=== PATIENT | male | born 1985 | race Caucasian/White ===

== ENCOUNTER 2019-10-21 20:59 | Emergency (ER) | payer SELFPAY ==
[~2019-10-21] VITALS: Ht 182.9 cm; Wt 75.0 kg
[~2019-10-21 20:59] MED LIST: HYDR1TAB PO; PRM25T PO
[2019-10-21 22:06] LABS: BASOPHILS % (AUTO) 0 % (0-10); EOSINOPHILS % (AUTO) 0 % (0-10); HEMATOCRIT 44 % (40-54); HEMOGLOBIN 15.6 G/DL (13.3-17.7); LYMPHOCYTES # (AUTO) 1.7 X 10^3 (1.0-4.0); LYMPHOCYTES % (AUTO) 13 % (12-44); MEAN CORPUSCULAR HEMOGLOBIN 32 PG (25-34); MEAN CORPUSCULAR HGB CONC 36 G/DL (32-36); MEAN CORPUSCULAR VOLUME 90 FL (80-99); MEAN PLATELET VOLUME 10.6 FL (7.4-10.4); MONOCYTES # (AUTO) 1.1 X 10^3 (0.0-1.0); MONOCYTES % (AUTO) 8 % (0-12); NEUTROPHILS # (AUTO) 10.3 X 10^3 (1.8-7.8); NEUTROPHILS % (AUTO) 79 % (42-75); PLATELET COUNT 232 10^3/uL (130-400)
[2019-10-21 22:07] LABS: BILIRUBIN,URINE 1+ (NEGATIVE); CLARITY,URINE CLEAR; COLOR,URINE ORANGE; GLUCOSE, URINE (UA) NEGATIVE (NEGATIVE); KETONES,URINE 3+ (NEGATIVE); LEUKOCYTE ESTERASE ,URINE NEGATIVE (NEGATIVE); NITRITE,URINE NEGATIVE (NEGATIVE); PH,URINE 6.5 (5-9); PROTEIN,URINE NEGATIVE (NEGATIVE)
[2019-10-21 22:19] LABS: BACTERIA,URINE TRACE /HPF
[2019-10-21] MEDS ORDERED: LACTATED RINGERS 1,000 ML IV ONE (22:20)
[2019-10-21] MEDS ORDERED: KETOROLAC 30 MG/ML VIAL IVP STA (22:22)
[2019-10-21 22:28] LABS: ALANINE AMINOTRANSFERASE 14 U/L (0-55); ALBUMIN 4.6 GM/DL (3.2-4.5); ALKALINE PHOSPHATASE 50 U/L (40-136); BILIRUBIN,TOTAL 1.2 MG/DL (0.1-1.0); BUN/CREATININE RATIO 7; CALCIUM 9.3 MG/DL (8.5-10.1); CARBON DIOXIDE 24 MMOL/L (21-32); CHLORIDE 103 MMOL/L (98-107); CREATININE SERUM 0.81 MG/DL (0.60-1.30); GFR ESTIMATED > 60; GLUCOSE 95 MG/DL (70-105); POTASSIUM 3.8 MMOL/L (3.6-5.0); SODIUM 139 MMOL/L (135-145); TOTAL PROTEIN 7.4 GM/DL (6.4-8.2)
--- NOTE | 2019-10-21 22:29 | ED Abdominal Pain ---
General Chief Complaint: Abdominal/GI Problems Stated Complaint: ABD PAIN,FEVER Nursing Triage Note: Pt amb to triage with c/o LLQ abd discomfort, diarrhea, and fever. Pt reports onset of symptoms to be 10/19/19. Pt describes discomfort as "sharp." Denies nausea or vomiting. Sepsis Screen: Possible Severe Sepsis Risk Source of Information: Patient Exam Limitations: No Limitations (JESUS LEE MED STUDENT) History of Present Illness Date Seen by Provider: Oct 21, 2019 Time Seen by Provider: 21:58 Initial Comments Pt complains of LLQ abdominal pain and ongoing diarrhea beginning Sunday. Describes pain as constantly crampy /10 with occasional sharp 8/10 exacerbations. Pain is worsened after bowel movements and resolves completely with 600mg of ibuprofen he has been taking 3x a day since Sunday. Associates his pain with loss of appetite and nausea, denies vomiting. Past medical history is notable for diverticulosis diagnosed on lower GI study in 2010. Timing/Duration: 2-3 Days Severity/Quality: Moderate, Aching, Cramping, Sharp, Stabbing Location: LLQ Radiation: No Radiation Activities at Onset: None Modifying Factors: Improves With Analgesics; Worsens With Defecating; Improves With Lying down; Worsens With Movement, Worsens With Palpation Associated Symptoms: No Back Pain; Diaphoresis, Fever/Chills, Fatigue; No Headache, No Heartburn; Nausea/Vomiting; No Rash (JESUS LEE MED STUDENT) Severity/Quality: Moderate, Cramping Location: LLQ Radiation: No Radiation Modifying Factors: Improves With Analgesics, Improves With Resting Associated Symptoms: Fever/Chills, Nausea/Vomiting; No Weakness (AMAYA JARRETT MD) Allergies and Home Medications Allergies Coded Allergies: No Known Drug Allergies (Unverified , 04/17/13) Home Medications Promethazine Hcl 25 Mg Tab, 25 MG PO Q6H Prescribed by: AMAYA JARRETT on 11/01/14 1328 Patient Home Medication List Home Medication List Reviewed: Yes (JESUS LEE MED STUDENT) Home Medication List Reviewed: Yes (AMAYA JARRETT MD) Review of Systems Review of Systems Constitutional: chills, diaphoresis, fever, malaise EENTM: No Eye Pain, No Ear Pain, No Mouth Pain, No Nose Pain, No Throat Pain, No Throat Swelling Respiratory: Denies Cough, Denies Shortness of Air Cardiovascular: Denies Chest Pain, Denies Edema Gastrointestinal: See HPI; Denies Abdomen Distended; Abdominal Pain, Constipated, Diarrhea, Nausea, Poor Appetite; Denies Rectal Bleeding, Denies Vomiting Genitourinary: Denies Incontinence, Denies Pain Musculoskeletal: No back pain, No joint pain Skin: No lesions, No lumps, No rash Psychiatric/Neurological: Denies Anxiety, Denies Depressed Endocrine: Denies Intolerance to Cold, Denies Intolerance to Heat Hematologic/Lymphatic: Denies Blood Clots, Denies Easy Bleeding (JESUS LEE MED STUDENT) Constitutional: see HPI Cardiovascular: Denies Chest Pain, Denies Edema Gastrointestinal: Diarrhea, Nausea (AMAYA JARRETT MD) All Other Systems Reviewed Negative Unless Noted: Yes (AMAYA JARRETT MD) Past Pcrrdvu-Xpmxqe-Onmuyr Hx Past Med/Social Hx: Reviewed Nursing Past Med/Soc Hx (AMAYA JARRETT MD) Patient Social History Alcohol Use: Denies Use Recreational Drug Use: Yes Drug of Choice: thc Smoking Status: Current Everyday Smoker Type Used: Cigarettes 2nd Hand Smoke Exposure: Yes Recent Foreign Travel: No Contact w/Someone Who Travel: No Recent Infectious Disease Expo: No (JESUS LEE MED STUDENT) Immunizations Up To Date Tetanus Booster (TDap): More than 5yrs (JESUS LEE MED STUDENT) Past Medical History Surgeries: No Respiratory: No Cardiac: No Neurological: No Gastrointestinal: No Musculoskeletal: No Endocrine: No Cancer: No Psychosocial: No Integumentary: No (JESUS LEE MED STUDENT) Family Medical History Reviewed Nursing Family Hx (AMAYA JARRETT MD) Cancer (colon, grandfather ) (JESUS LEE MED STUDENT) Physical Exam Vital Signs Vital Signs - First Documented 10/21/19 21:22 Temp 38.2 Pulse 96 Resp 18 B/P (MAP) 118/80 (93) Pulse Ox 96 O2 Delivery Room Air (AMAYA JARRETT MD) Vital Signs Capillary Refill : Less Than 3 Seconds (JESUS LEE MED STUDENT) Height/Weight/BMI Height: 6'" Weight: 185lbs. oz. 83.213078vz; 22.00 BMI Method:Stated General Appearance: WD/WN, no apparent distress HEENT: PERRL/EOMI, normal ENT inspection, TMs normal, pharynx normal Neck: non-tender, supple Respiratory: chest non-tender, lungs clear, normal breath sounds, no respiratory distress, no accessory muscle use Cardiovascular: regular rate, rhythm, no edema, no gallop, no murmur Gastrointestinal: normal bowel sounds, soft; No distended, No guarding, No rebound; tenderness (LLQ TTP); No mass Extremities: no calf tenderness, normal capillary refill Back: no CVA tenderness, no vertebral tenderness Neurologic/Psychiatric: alert, normal mood/affect, oriented x 3 Skin: normal color, warm/dry Lymphatic: no adenopathy (supra/infraclavicular, anterior and posterior cervical ) (JESUS LEE,MED STUDENT) General Appearance: WD/WN, no apparent distress Respiratory: lungs clear, normal breath sounds Cardiovascular: regular rate, rhythm, no murmur Gastrointestinal: soft, tenderness (LLQ TTP) Extremities: non-tender Back: normal inspection, no CVA tenderness, no vertebral tenderness Neurologic/Psychiatric: alert, oriented x 3 Skin: normal color, warm/dry (AMAYA JARRETT MD) Progress/Results/Core Measures Results/Orders Lab Results Laboratory Tests Test 10/21/19 21:59 Range/Units White Blood Count 13.0 H 4.3-11.0 10^3/uL Red Blood Count 4.89 4.35-5.85 10^6/uL Hemoglobin 15.6 13.3-17.7 G/DL Hematocrit 44 40-54 % Mean Corpuscular Volume 90 80-99 FL Mean Corpuscular Hemoglobin 32 25-34 PG Mean Corpuscular Hemoglobin Concent 36 32-36 G/DL Red Cell Distribution Width 12.0 10.0-14.5 % Platelet Count 232 130-400 10^3/uL Mean Platelet Volume 10.6 H 7.4-10.4 FL Neutrophils (%) (Auto) 79 H 42-75 % Lymphocytes (%) (Auto) 13 12-44 % Monocytes (%) (Auto) 8 0-12 % Eosinophils (%) (Auto) 0 0-10 % Basophils (%) (Auto) 0 0-10 % Neutrophils # (Auto) 10.3 H 1.8-7.8 X 10^3 Lymphocytes # (Auto) 1.7 1.0-4.0 X 10^3 Monocytes # (Auto) 1.1 H 0.0-1.0 X 10^3 Eosinophils # (Auto) 0.0 0.0-0.3 10^3/uL Basophils # (Auto) 0.0 0.0-0.1 10^3/uL Urine Color ORANGE Urine Clarity CLEAR Urine pH 6.5 5-9 Urine Specific [place] >=1.030 1.016-1.022 Urine Protein NEGATIVE NEGATIVE Urine Glucose (UA) NEGATIVE NEGATIVE Urine Ketones 3+ H NEGATIVE Urine Nitrite NEGATIVE NEGATIVE Urine Bilirubin 1+ H NEGATIVE Urine Urobilinogen 0.2 < = 1.0 MG/DL Urine Leukocyte Esterase NEGATIVE NEGATIVE Urine RBC (Auto) NEGATIVE NEGATIVE Urine RBC NONE /HPF Urine WBC NONE /HPF Urine Crystals NONE /LPF Urine Bacteria TRACE /HPF Urine Casts NONE /LPF Urine Mucus MODERATE H /LPF Urine Culture Indicated NO Sodium Level 139 135-145 MMOL/L Potassium Level 3.8 3.6-5.0 MMOL/L Chloride Level 103 98-107 MMOL/L Carbon Dioxide Level 24 21-32 MMOL/L Anion Gap 12 5-14 MMOL/L Blood Urea Nitrogen 6 L 7-18 MG/DL Creatinine 0.81 0.60-1.30 MG/DL Estimat Glomerular Filtration Rate > 60 BUN/Creatinine Ratio 7 Glucose Level 95 70-105 MG/DL Calcium Level 9.3 8.5-10.1 MG/DL Corrected Calcium 8.5-10.1 MG/DL Total Bilirubin 1.2 H 0.1-1.0 MG/DL Aspartate Amino Transf (AST/SGOT) 15 5-34 U/L Alanine Aminotransferase (ALT/SGPT) 14 0-55 U/L Alkaline Phosphatase 50 40-136 U/L Total Protein 7.4 6.4-8.2 GM/DL Albumin 4.6 H 3.2-4.5 GM/DL (AMAYA JARRETT MD) My Orders Orders - AMAYA JARRETT MD Ed Iv/Invasive Line Start (10/21/19 22:20) Lactated Ringers (Lr 1000 Ml Iv Solution (10/21/19 22:20) Ketorolac Injection (Toradol Injection) (10/21/19 22:22) (AMAYA AJRRETT MD) Medications Given in ED Current Medications Medications Dose Ordered Sig/Kaleigh Route Start Time Stop Time Status Last Admin Dose Admin Lactated Ringer's 1,000 ml @ 0 mls/hr Q0M ONCE IV 10/21/19 22:20 10/21/19 22:22 DC 10/21/19 22:37 999 MLS/HR (AMAYA JARRETT MD) Vital Signs/I&O 10/21/19 21:22 Temp 38.2 Pulse 96 Resp 18 B/P (MAP) 118/80 (93) Pulse Ox 96 O2 Delivery Room Air (AMAYA JARRETT MD) Blood Pressure Mean: 93 POS Progress Progress Note : Time: 22:31 Progress Note Seen and evaluated. Ordered CBC, CMP, UA, abdominal CT. Starting IV fluid resuscitation at 1L NS and toradol 30mg. (JESUS LEE,MED STUDENT) Progress Note : Progress Note I have seen and evaluated the patient and agree with above except as indicated. Have directed the plan of care. Patient is here with left lower quadrant abdominal pain that's been going on for 2 days. This is associated with nausea and diarrhea. Does have history of diverticulosis many years ago. Has had mild fever at home. Evaluation as above. Plan is for IV, labs, UA, LR [address] abdomen and pelvis. Monitor patient. 2330: CT doesn't show acute diverticulitis. He is overall doing better and would like to try outpatient treatment. We will initiate oral antibiotics and ensure that he can keep those down. I have also discussed referral to a surgeon with him. 0004: Discharged home with return precautions. Patient verbalize understanding instructions and agreement with plan. (AMAYA JARRETT MD) Diagnostic Imaging Diagonstic Imaging: CT Plain Films/CT/US/NM/MRI: abdomen, pelvis Comments No renal or ureteral calculi. Acute sigmoid colon diverticulitis without perforation. Reviewed: Reviewed Night k Study, Reviewed by Me (AMAYA JARRETT MD) Departure Impression Primary Impression: Diverticulitis of intestine Qualified Codes: K57.32 - Diverticulitis of large intestine without perforation or abscess without bleeding Disposition: HOME, SELF-CARE Condition: Stable Departure-Patient Inst. Decision time for Depature: 23:34 (AMAYA JARRETT MD) Referrals: MARVA BHATIA DO NO,LOCAL PHYSICIAN (PCP) Primary Care Physician Patient Instructions: Diverticulitis (DC) Add. Discharge Instructions: All discharge instructions reviewed with patient and/or family. Voiced understanding. Drink plenty of fluids and eat a light diet. Take medications as directed. You may take ibuprofen 800 mg every 8 hours as needed for pain. You may also take Tylenol/acetaminophen 1000 mg every 8 hours as needed for pain. Follow-up with Dr. Bhatia or surgeon of your choice for recheck and further evaluation including evaluation for lower endoscopy (colonoscopy). Return for worse pain, fever, vomiting, weakness, breathing Problems, bleeding per rectum or other concerns as needed. Scripts Metronidazole (Metronidazole) 500 Mg Tablet 500 MG PO BID, #14 TAB 0 Refills Prov: AMAYA JARRETT MD 10/22/19 Ciprofloxacin HCl (Ciprofloxacin HCl) 500 Mg Tablet 500 MG PO BID, #14 TAB Prov: AMAYA JARRETT MD 10/22/19 Copy Copies To 1: MARVA BHATIA DREW,MED STUDENT Oct 21, 2019 22:29 AMAYA ESPINO MD Oct 21, 2019 23:17 POS
[2019-10-22] MEDS ORDERED: metroNIDAZOLE 500 MG (FLAGYL) TAB PO STA (00:03)
[2019-10-22] MEDS ORDERED: METR-145 PO (00:05)
[2019-10-22] MEDS ORDERED: CIPR500T4 PO (00:05)
[2019-10-22] MEDS ORDERED: CIPROFLOXACIN 500 MG (CIPRO) TABLET PO SCH (00:15)
[2019-10-22 00:39] VITALS: BP 118/77
--- NOTE | 2019-10-22 06:19 | Diagnostic Imaging Report ---
PROCEDURE: CT urinary tract, rule out kidney stone. TECHNIQUE: Multiple contiguous axial images were obtained through the abdomen and pelvis without the use of intravenous contrast. Auto Exposure Controls were utilized during the CT exam to meet ALARA standards for radiation dose reduction. INDICATION: Left flank pain 3 days history. No priors. FINDINGS: There is diverticulosis and perisigmoidal inflammatory changes in the left lower quadrant consistent with acute diverticulitis. No extraluminal air to suggest transmural perforation. No fluid collection or abscess. No resultant bowel obstruction. There is trace pelvic free fluid. There are no radiodense urinary tract stones. There is no hydroureteronephrosis. Liver, spleen, adrenals and pancreas unremarkable. Gallbladder unremarkable. IMPRESSION: 1. Acute sigmoid diverticulitis without obstruction, evidence of perforation or abscess, trace free fluid noted. 2. No other significant finding. Dictated by: Dictated on workstation # [id number]
== END 2019-10-22 00:39 | disposition home or self-care (01) ==
LOC: EDUNIT# 20:59 → ER 21:00
DX: K57.32 Diverticulitis of large intestine without perforation or abscess without bleeding (principal); F17.210 Nicotine dependence, cigarettes, uncomplicated
CPT/HCPCS: 36415; 74176; 80053; 81000; 85025; 96361; 96374

== ENCOUNTER 2021-06-21 05:35 | Outpatient (CLI) | payer OTHER ==
[~2021-06-21] VITALS: Ht 182.9 cm; Wt 69.1 kg
[~2021-06-21 05:35] MED LIST changes: +CIPR500T5 PO; +METR-145 PO
== END 2021-06-21 14:24 | disposition home or self-care (01) ==
LOC: PREOP 05:35
PROVIDERS: ATTEND Surgery
DX: Z01.818 Encounter for other preprocedural examination (principal)

== ENCOUNTER 2021-06-28 08:31 | Day surgery (SDC) | payer OTHER ==
[~2021-06-28] VITALS: Ht 182.9 cm; Wt 69.1 kg
[2021-06-28] MEDS ORDERED: LACTATED RINGERS 1,000 ML IV STA (08:34)
[2021-06-28] MEDS ORDERED: LACTATED RINGERS 1,000 ML IV ONE (08:39)
[2021-06-28 08:54] VITALS: BP 117/91
[2021-06-28] MEDS ORDERED: PROPOFOL INJECTION 50 ML IV ONE (10:26)
--- NOTE | 2021-06-28 10:58 | Progress Note-Post Operative ---
Post-Operative Progess Note Surgeon (s)/Grain Farmer (s) Surgeon MARVA BHATIA DO Grain Farmer: na Pre-Operative Diagnosis hx diverticulitis Post-Operative Diagnosis diverticulosis Procedure & Operative Findings Date of Procedure 06/28/21 Procedure Performed/Findings colonoscopy Anesthesia Type per counselor education professor Estimated Blood Loss Estimated blood loss (mL): na Specimens/Packing Specimens Removed na MARVA BHATIA DO Jun 28, 2021 10:58
[2021-06-28 11:00] VITALS: BP 113/73
--- NOTE | 2021-06-28 11:00 | Discharge Inst-Simple/Standard ---
Discharge Inst-Standard Patient Instructions/Follow Up Plan of Care/Instructions/FU: 10 years repeat colonoscopy, if any issues before that be seen at that time. Activity as Tolerated: Yes Discharge Diet: Regular Diet (high fiber) MARVA BHATIA DO Jun 28, 2021 10:59
[2021-06-28 11:25] VITALS: BP 109/79
[2021-06-28 11:27] VITALS: BP 113/73
[2021-06-28 11:34] VITALS: BP 113/73
--- NOTE | 2021-06-28 14:13 | OPERATIVE REPORT ---
DATE OF SERVICE: 06/28/2021 PREOPERATIVE DIAGNOSIS: History of diverticulitis. POSTOPERATIVE DIAGNOSIS: Diverticulosis. PROCEDURE: Colonoscopy. SURGEON: Marva Wu DO ANESTHESIA: Per PRODUCT APPLICATIONS ENGINEER. ESTIMATED BLOOD LOSS: None. COMPLICATIONS: None. INDICATIONS: The patient is a 36-year-old male needing a colonoscopy due to history of diverticulitis. He understands risks and benefits of procedure and wished to proceed with procedure. Consent was signed in the chart. DESCRIPTION OF PROCEDURE: The patient was taken to endoscopy suite, placed in left lateral recumbent position. Timeout was performed. Digital rectal exam was performed. There were no palpable polyps, masses or ulcerations. Scope was inserted in the rectum, advanced all the way to cecum with minimal difficulty. Prep was adequate. Scope was then slowly retracted back. No polyps, masses or ulcerations within the cecum, ascending, transverse, descending and sigmoid colon throughout the majority of the left colon diverticulosis present. Once in the rectum, scope was retroflexed noting no other pathology. Scope was returned to its normal position, slowly withdrawn until completely removed. The patient tolerated procedure well without any complications, taken to recovery room in stable condition. RECOMMENDATIONS: The patient will need repeat colonoscopy in 10 years. Any issues before that be seen at that time. Recommend high fiber diet. Job ID: [id number] DocumentID: [id number] Dictated Date: 06/28/2021 11:03:44 Well Surveying Engineer Date: 06/28/2021 14:12:39 Dictated By: MARVA WU DO
--- NOTE | 2021-06-28 15:12 | Anesthesia-General Post-Op ---
MAC Patient Condition Mental Status/LOC: Same as Preop Cardiovascular: Satisfactory Nausea/Vomiting: Absent Respiratory: Satisfactory Pain: Controlled Complications: Absent Post Op Complications Complications None Follow Up Care/Instructions Patient Instructions None needed. Anesthesiology Discharge Order Discharge Order Patient is doing well, no complaints, stable vital signs, no apparent adverse anesthesia problems. No complications reported per nursing. RAJAT CARTER CRNA Jun 28, 2021 15:12
== END 2021-06-28 11:33 | disposition home or self-care (01) ==
LOC: ENDO 08:31
PROVIDERS: ATTEND Surgery
DX: K57.30 Diverticulosis of large intestine without perforation or abscess without bleeding (principal); K57.92 Diverticulitis of intestine, part unspecified, without perforation or abscess without bleeding; F17.210 Nicotine dependence, cigarettes, uncomplicated; Z80.0 Family history of malignant neoplasm of digestive organs

== ENCOUNTER 2022-12-05 15:51 | Inpatient (IN) | payer SELFPAY ==
[~2022-12-05] VITALS: Ht 182.9 cm; Wt 87.6 kg
[2022-12-05] MEDS ORDERED: DICYCLOMINE 10 MG/ML (BENTYL) 2 ML AMP IM ONE (16:30)
[2022-12-05] MEDS ORDERED: NS IV 1000 ML 1,000 ML IV SCH (16:30)
[2022-12-05 16:33] LABS: BILIRUBIN,URINE NEGATIVE (NEGATIVE); CLARITY,URINE CLEAR; COLOR,URINE YELLOW; GLUCOSE, URINE (UA) NEGATIVE (NEGATIVE); KETONES,URINE TRACE (NEGATIVE); LEUKOCYTE ESTERASE ,URINE NEGATIVE (NEGATIVE); NITRITE,URINE NEGATIVE (NEGATIVE); PH,URINE 6.5 (5-9); PROTEIN,URINE NEGATIVE (NEGATIVE)
--- NOTE | 2022-12-05 16:38 | ED GI ---
General Chief Complaint: Abdominal/GI Problems Stated Complaint: VOMITING BLOOD Nursing Triage Note: PT AMB TO ED BY POV WITH C/O ABD CRAMPING AND VOMITING. 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 REPORTS 2 BM TODAY THAT WERE LOOSE. PT HAS HX OF DIVERTICULOSIS. DENIES NAUSEA AT THIS TIME. Source of Information: Patient Exam Limitations: No Limitations History of Present Illness Date Seen by Provider: Dec 05, 2022 Time Seen by Provider: 16:33 Initial Comments 37-year-old male presents to the ED with complaints of abdominal pain starting this morning. Reports pain is located in the left upper and left lower quadrants, describes the pain as cramping. States he had 2 soft stools today, denies diarrhea. Reports 1 episode of vomiting prior to arrival with about a teaspoon of bright red blood. Denies history of GI bleed. Denies blood in his stool. Reports history of diverticulitis, states this feels similar except for the left upper quadrant pain. Denies fever/chills, denies chest pain, shortness of air. Reports he no longer feels nauseous. Denies dysuria, states urine is darker than usual, but states he has not been drinking very much water. Denies any other past medical history, does not take any medications. Severity/Quality: Cramping Location: LUQ, LLQ Allergies and Home Medications Allergies Coded Allergies: No Known Drug Allergies (Unverified , 04/17/13) Patient Home Medication List Home Medication List Reviewed: Yes Amoxicillin/Potassium Clav (Amox Tr-K Clv 875-125 mg Tab) 875 Mg-125 Mg Tablet, 1 EACH PO BID Prescribed by: BROWN OREILLY on 12/07/22 1233 Famotidine (Heartburn Relief) 20 Mg Tablet, 20 MG PO DAILY PRN for HEARTBURN, (Reported) Entered as Reported by: DEBORAH BOSS on 12/06/22 1037 Last Action: Held Simethicone (Gas-X) 125 Mg Capsule, 125 MG PO Q8H PRN for GAS, (Reported) Entered as Reported by: DEBORAH BOSS on 12/06/22 1037 Last Action: Held Review of Systems Review of Systems Constitutional: see HPI Past Vdpubsg-Jjivir-Bmqzka Hx Patient Social History Tobacco Use?: No Smoking Status: Former Smoker Use of E-Cig and/or Vaping dev: No Substance use?: No Alcohol Use?: Yes Alcohol Frequency: Once in a while Pt feels they are or have been: No Immunizations Up To Date Tetanus Booster (TDap): More than 5yrs Influenza Vaccine Up-to-Date: No; Not Current First/Initial COVID19 Vaccinat: X3 Second COVID19 Vaccination Stan: X3 Third COVID19 Vaccination Date: X3 Seasonal Allergies Seasonal Allergies: Yes Past Medical History Surgery/Hospitalization HX: DIVERTICULOSIS Surgeries: Yes (DENTAL) Respiratory: No Cardiac: No Neurological: No Genitourinary: No Gastrointestinal: Yes Diverticulosis Musculoskeletal: No Endocrine: No HEENT: No Cancer: No Psychosocial: Yes Anxiety, Depression Integumentary: No Blood Disorders: No Family Medical History Cancer Physical Exam Vital Signs Vital Signs - First Documented 12/05/22 16:09 Temp 36.6 Pulse 78 Resp 18 B/P (MAP) 149/100 (116) Pulse Ox 98 O2 Delivery Room Air Capillary Refill : Less Than 3 Seconds Height/Weight/BMI Height: 6'" Weight: 185lbs. oz. 83.774272sn; 25.00 BMI Method:Stated General Appearance: WD/WN, no apparent distress Neck: supple, normal inspection Respiratory: lungs clear, normal breath sounds, no respiratory distress, no accessory muscle use Cardiovascular: regular rate, rhythm, no edema, no gallop, no JVD, no murmur Gastrointestinal: normal bowel sounds, soft, no organomegaly, no pulsatile mass, tenderness (LLQ, LUQ) Extremities: normal range of motion, normal inspection Neurologic/Psychiatric: alert, normal mood/affect, oriented x 3 Skin: normal color, warm/dry Progress/Results/Core Measures Results/Orders Lab Results Laboratory Tests Test 12/05/22 16:27 12/05/22 16:55 Range/Units Urine Color YELLOW Urine Clarity CLEAR Urine pH 6.5 5-9 Urine Specific [place] >=1.030 1.016-1.022 Urine Protein NEGATIVE NEGATIVE Urine Glucose (UA) NEGATIVE NEGATIVE Urine Ketones TRACE H NEGATIVE Urine Nitrite NEGATIVE NEGATIVE Urine Bilirubin NEGATIVE NEGATIVE Urine Urobilinogen 0.2 < = 1.0 MG/DL Urine Leukocyte Esterase NEGATIVE NEGATIVE Urine RBC (Auto) NEGATIVE NEGATIVE Urine RBC 0-2 /HPF Urine WBC 0-2 /HPF Urine Squamous Epithelial Cells RARE /HPF Urine Crystals PRESENT H /LPF Urine Amorphous Sediment FEW LEE URATES H /LPF Urine Bacteria TRACE /HPF Urine Casts NONE /LPF Urine Mucus LARGE H /LPF Urine Culture Indicated NO White Blood Count 13.2 H 4.3-11.0 10^3/uL Red Blood Count 4.82 4.30-5.52 10^6/uL Hemoglobin 15.6 13.3-17.7 g/dL Hematocrit 45 40-54 % Mean Corpuscular Volume 94 80-99 fL Mean Corpuscular Hemoglobin 32 25-34 pg Mean Corpuscular Hemoglobin Concent 34 32-36 g/dL Red Cell Distribution Width 11.8 10.0-14.5 % Platelet Count 278 130-400 10^3/uL Mean Platelet Volume 10.3 9.0-12.2 fL Immature Granulocyte % (Auto) 0 % Neutrophils (%) (Auto) 78 H 42-75 % Lymphocytes (%) (Auto) 16 12-44 % Monocytes (%) (Auto) 6 0-12 % Eosinophils (%) (Auto) 0 0-10 % Basophils (%) (Auto) 1 0-10 % Neutrophils # (Auto) 10.2 H 1.8-7.8 10^3/uL Lymphocytes # (Auto) 2.1 1.0-4.0 10^3/uL Monocytes # (Auto) 0.7 0.0-1.0 10^3/uL Eosinophils # (Auto) 0.1 0.0-0.3 10^3/uL Basophils # (Auto) 0.1 0.0-0.1 10^3/uL Immature Granulocyte # (Auto) 0.1 0.0-0.1 10^3/uL Sodium Level 141 135-145 MMOL/L Potassium Level 4.1 3.6-5.0 MMOL/L Chloride Level 104 98-107 MMOL/L Carbon Dioxide Level 28 21-32 MMOL/L Anion Gap 9 5-14 MMOL/L Blood Urea Nitrogen 12 7-18 MG/DL Creatinine 0.81 0.60-1.30 MG/DL Estimat Glomerular Filtration Rate 117 BUN/Creatinine Ratio 15 Glucose Level 89 70-105 MG/DL Calcium Level 9.3 8.5-10.1 MG/DL Corrected Calcium 8.9 8.5-10.1 MG/DL Total Bilirubin 0.6 0.1-1.0 MG/DL Aspartate Amino Transf (AST/SGOT) 17 5-34 U/L Alanine Aminotransferase (ALT/SGPT) 21 0-55 U/L Alkaline Phosphatase 48 40-136 U/L Total Protein 7.6 6.4-8.2 GM/DL Albumin 4.5 3.2-4.5 GM/DL Amylase Level 51 25-125 U/L Lipase 19 8-78 U/L My Orders Orders - MILTON QUIGLEY APRN Comprehensive Metabolic Panel (12/05/22 16:17) Lipase (12/05/22 16:17) Amylase (12/05/22 16:17) Ua Culture If Indicated (12/05/22 16:17) Cbc With Automated Diff (12/05/22 16:17) Ed Iv/Invasive Line Start (12/05/22 16:24) Ns Iv 1000 Ml (Sodium Chloride 0.9%) (12/05/22 16:30) Dicyclomine Injection (Bentyl Injection) (12/05/22 16:30) Ct Abdomen/Pelvis W (12/05/22 16:26) Iohexol Injection (Omnipaque 350 Mg/Ml 1 (12/05/22 17:00) Received Contrast (Hold Metformin- Contr (12/05/22 17:00) Sodium Chloride Flush (Catheter Flush Sy (12/05/22 17:00) Ns (Ivpb) (Sodium Chloride 0.9% Ivpb Bag (12/05/22 17:00) Ns Iv 1000 Ml (Sodium Chloride 0.9%) (12/05/22 16:50) Blood Culture (12/05/22 18:41) Lactic Acid Analyzer (12/05/22 18:41) Piperacillin Sodium/Tazobactam (Zosyn Vi (12/05/22 18:45) Ed Admission (Communication) (12/05/22 18:43) Medications Given in ED Vital Signs/I&O 12/05/22 16:09 Temp 36.6 Pulse 78 Resp 18 B/P (MAP) 149/100 (116) Pulse Ox 98 O2 Delivery Room Air Blood Pressure Mean: 116 Progress Progress Note #1: Time: 16:37 Progress Note Patient seen and evaluated, resting on bed, no acute distress. Based on exam and symptoms, differential diagnosis includes but is not limited to diverti culitis, gastritis, peptic ulcer disease, GERD, gastroenteritis. Work-up initiated including CBC, CMP, amylase, lipase, UA, CT abdomen pelvis. Bentyl ordered for abdominal cramping. Progress Note #2: Time: 18:[address] and labs reviewed. CBC showed elevated WBC at 13.2, neutrophils elevated at 78. CMP grossly normal. UA positive for trace ketones, negative for infection. CT showed diverticulitis as well as possible early intramural abscess. Will call Dr. Wu, surgery, for consult. Diagnostic Imaging Diagonstic Imaging: CT Plain Films/CT/US/NM/MRI: abdomen, pelvis Comments [facility] [place], [place] NAME: MISTY SHERIFF [facility] REC#: [id number] PT STATUS: REG ER : 1985 PHYSICIAN: MILTON QUIGLEY APRN ADMIT DATE: 12/05/22/ER Signed Date of Exam:12/05/22 CT ABDOMEN/PELVIS W PROCEDURE: CT abdomen and pelvis with contrast. TECHNIQUE: Multiple contiguous axial images were obtained through the abdomen and pelvis after administration of intravenous contrast. Auto Exposure Controls were utilized during the CT exam to meet ALARA standards for radiation dose reduction. All CT scans use one or more of the following dose optimizing techniques: automated exposure control, MA and/or KvP adjustment based on patient size and exam type or iterative reconstruction. INDICATION: Abdominal cramping and vomiting. COMPARISON: Correlation is made with prior CT from 10/21/2019. FINDINGS: The lung bases are clear. The liver and gallbladder are unremarkable. There is no biliary ductal dilatation. Pancreas and spleen are unremarkable. No adrenal mass is identified. Kidneys are unremarkable. There is no hydronephrosis. Aorta is nonaneurysmal. There is diverticulosis of the descending and sigmoid colon. There is wall thickening and perisigmoidal inflammatory stranding present, consistent with acute diverticulitis. There is a small area of low attenuation in the wall of the sigmoid measuring 19 mm, which may represent intramural abscess. There is no obstruction. No free fluid is seen. There is no free air. Bladder and prostate are unremarkable. IMPRESSION: Findings consistent with acute sigmoid diverticulitis or potential early intramural abscess. No extraluminal fluid collection or evidence of bowel obstruction is detected. Dictated by: Dictated on workstation # [id number] Dict: 12/05/22 180 Trans: 12/05/221824 AS6 [id number] Interpreted by: KATIE GALLARDO MD Electronically signed by: KATIE GALLARDO MD 12/05/221824 Departure Communication (Admissions) Time/Spoke to Admitting Phy: 18:[address] Oreilly, [facility] on-call, regarding admission. She recommends adding blood cultures x2 as well as lactic acid. She will place other admission orders. Time/Spoke to Consulting Phy: 18:[address] Wu, surgery, regarding CT result. He recommends admission with Zosyn and NPO diet. He would like the hospitalist to admit patient with him as a consult. Impression Primary Impression: Diverticulitis Disposition: ADMITTED INPATIENT Condition: Stable Admissions Decision to Admit Reason: Admit from ER (General) Decision to Admit/Date: Dec 05, 2022 Time/Decision to Admit Time: 18:47 Departure-Patient Inst. Referrals: NO,LOCAL PHYSICIAN (PCP/Family) Primary Care Physician Scripts Amoxicillin/Potassium Clav (Amox Tr-K Clv 875-125 mg Tab) 875 Mg-125 Mg Tablet 1 EACH PO BID for 7 Days, #14 TAB 0 Refills Prov: BROWN OREILLY MD 12/07/22 MILTON QUIGLEY APRN Dec 05, 2022 16:38
[2022-12-05 16:43] LABS: AMORPHOUS SEDIMENT,UR FEW AMOR URATES /LPF; BACTERIA,URINE TRACE /HPF; RBC,URINE 0-2 /HPF; SQUAMOUS EPITHELIAL CELL,UR RARE /HPF; WBC,URINE 0-2 /HPF
[2022-12-05] MEDS ORDERED: NS IV 1000 ML 1,000 ML ONE (16:50)
[2022-12-05] MEDS ORDERED: CATHETER FLUSH 10 ML SYR IV PRN (17:00)
[2022-12-05] MEDS ORDERED: HOLD METFORMIN - RECEIVED CONTRAST 20 ML VIAL IV SCH (17:00)
[2022-12-05] MEDS ORDERED: IOHEXOL 350 MG/ML 100 ML (OMNIPAQUE 350) VIAL IV ONE (17:00)
[2022-12-05] MEDS ORDERED: NS 100 ML (IVPB) BAG IV ONE (17:00)
[2022-12-05 17:06] LABS: BASOPHILS # (AUTO) 0.1 10^3/uL (0.0-0.1); BASOPHILS % (AUTO) 1 % (0-10); EOSINOPHILS # (AUTO) 0.1 10^3/uL (0.0-0.3); EOSINOPHILS % (AUTO) 0 % (0-10); HEMATOCRIT 45 % (40-54); HEMOGLOBIN 15.6 g/dL (13.3-17.7); LYMPHOCYTES # (AUTO) 2.1 10^3/uL (1.0-4.0); LYMPHOCYTES % (AUTO) 16 % (12-44); MEAN CORPUSCULAR HEMOGLOBIN 32 pg (25-34); MEAN CORPUSCULAR HGB CONC 34 g/dL (32-36); MEAN CORPUSCULAR VOLUME 94 fL (80-99); MEAN PLATELET VOLUME 10.3 fL (9.0-12.2); MONOCYTES # (AUTO) 0.7 10^3/uL (0.0-1.0); MONOCYTES % (AUTO) 6 % (0-12); NEUTROPHILS # (AUTO) 10.2 10^3/uL (1.8-7.8); NEUTROPHILS % (AUTO) 78 % (42-75); PLATELET COUNT 278 10^3/uL (130-400); WHITE BLOOD COUNT 13.2 10^3/uL (4.3-11.0)
[2022-12-05 17:19] LABS: ALBUMIN 4.5 GM/DL (3.2-4.5)
[2022-12-05 17:20] LABS: POTASSIUM 4.1 MMOL/L (3.6-5.0)
[2022-12-05 17:21] LABS: CALCIUM 9.3 MG/DL (8.5-10.1)
[2022-12-05 17:22] LABS: TOTAL PROTEIN 7.6 GM/DL (6.4-8.2)
[2022-12-05 17:24] LABS: BILIRUBIN,TOTAL 0.6 MG/DL (0.1-1.0)
[2022-12-05 17:25] LABS: CREATININE SERUM 0.81 MG/DL (0.60-1.30)
--- NOTE | 2022-12-05 18:15 | Diagnostic Imaging Report ---
PROCEDURE: CT abdomen and pelvis with contrast. TECHNIQUE: Multiple contiguous axial images were obtained through the abdomen and pelvis after administration of intravenous contrast. Auto Exposure Controls were utilized during the CT exam to meet ALARA standards for radiation dose reduction. All CT scans use one or more of the following dose optimizing techniques: automated exposure control, MA and/or KvP adjustment based on patient size and exam type or iterative reconstruction. INDICATION: Abdominal cramping and vomiting. COMPARISON: Correlation is made with prior CT from 10/21/2019. FINDINGS: The lung bases are clear. The liver and gallbladder are unremarkable. There is no biliary ductal dilatation. Pancreas and spleen are unremarkable. No adrenal mass is identified. Kidneys are unremarkable. There is no hydronephrosis. Aorta is nonaneurysmal. There is diverticulosis of the descending and sigmoid colon. There is wall thickening and perisigmoidal inflammatory stranding present, consistent with acute diverticulitis. There is a small area of low attenuation in the wall of the sigmoid measuring 19 mm, which may represent intramural abscess. There is no obstruction. No free fluid is seen. There is no free air. Bladder and prostate are unremarkable. IMPRESSION: Findings consistent with acute sigmoid diverticulitis or potential early intramural abscess. No extraluminal fluid collection or evidence of bowel obstruction is detected. Dictated by: Dictated on workstation # [id number]
[2022-12-05] MEDS ORDERED: PIPERACILLIN SODIUM/TAZOBACTAM 4.5 GM in NS (IVPB) 100 ML IV ONE (18:45)
[2022-12-05] MEDS ORDERED: NALOXONE 0.4 MG/ML 1 ML (NARCAN) VIAL IV PRN (20:00)
[2022-12-05] MEDS ORDERED: morphine INJ 4 MG/ML 1 ML (VIAL/SYRINGE) IV PRN (20:00)
[2022-12-05] MEDS ORDERED: ONDANSETRON 4 MG/2 ML (SDV) Z0FRAN IV PRN (20:00)
[2022-12-05 20:15] VITALS: BP 118/76
[2022-12-05] MEDS: NS IV 1000 ML 1,000 ML IV SCH (22:11)
[2022-12-05] MEDS: ENOXAPARIN 40 MG/0.4 ML (LOVENOX) SYR SC SCH (22:11)
[2022-12-06] VITALS (7 sets, daily range): BP systolic 118–133; BP diastolic 69–79
[2022-12-06] MEDS: KETOROLAC 15 MG/ML VIAL IV SCH ×5 (00:02→23:42)
[2022-12-06] MEDS: PIPERACILLIN SODIUM/TAZOBACTAM 4.5 GM in NS (IVPB) 100 ML IV SCH ×3 (02:14→17:39)
[2022-12-06] MEDS: NS IV 1000 ML 1,000 ML IV SCH ×3 (04:17→17:46)
[2022-12-06 05:47] LABS: HEMATOCRIT 41 % (40-54); HEMOGLOBIN 14.4 g/dL (13.3-17.7); MEAN CORPUSCULAR HEMOGLOBIN 32 pg (25-34); MEAN CORPUSCULAR HGB CONC 35 g/dL (32-36); MEAN CORPUSCULAR VOLUME 90 fL (80-99); MEAN PLATELET VOLUME 10.1 fL (9.0-12.2); PLATELET COUNT 244 10^3/uL (130-400); WHITE BLOOD COUNT 12.9 10^3/uL (4.3-11.0)
[2022-12-06 06:01] LABS: ALBUMIN 3.9 GM/DL (3.2-4.5)
[2022-12-06 06:02] LABS: POTASSIUM 3.7 MMOL/L (3.6-5.0)
[2022-12-06 06:03] LABS: CALCIUM 8.6 MG/DL (8.5-10.1)
[2022-12-06 06:04] LABS: TOTAL PROTEIN 6.9 GM/DL (6.4-8.2)
[2022-12-06 06:06] LABS: BILIRUBIN,TOTAL 1.6 MG/DL (0.1-1.0)
[2022-12-06 06:08] LABS: CREATININE SERUM 0.75 MG/DL (0.60-1.30)
--- NOTE | 2022-12-06 06:38 | Consultation - Surgery ---
AILEEN COHEN 12/06/22 0638: History of Present Illness History of Present Illness Patient Consulted On(malena/time) 12/06/22 06:31 Date Seen by Provider: Dec 06, 2022 Time Seen by Provider: 06:22 History of Present Illness Jessee Figueroa is a 37yo male w/ a PMH of diverticulosis presenting with Diverticulitis. Pt states that yesterday morning had some constant stomach pain rated at 6/10 that made him feel like he needed to have a bowel movement but instead had vomited w/ traces amount of blood. This prompted ED visit. Surgery was consulted due to potential sigmoid intramural abscess. During interview pt was sitting up in bed comfortable w/o complaints. Pt states he has had two flares of diverticulitis but only one has made him vomit. Pt states that pain has stopped overnight with the aid of pain medications. Today pt denies fever, chills, headache, chest pain, palpitations, SOB, cough, dysuria, and numbness/tingling. Allergies and Home Medications Allergies Coded Allergies: No Known Drug Allergies (Unverified , 04/17/13) Patient Home Medication List Famotidine (Heartburn Relief) 20 Mg Tablet, 20 MG PO DAILY PRN for HEARTBURN, (Reported) Entered as Reported by: DEBORAH BOSS on 12/06/22 1037 Last Action: Reviewed Simethicone (Gas-X) 125 Mg Capsule, 125 MG PO Q8H PRN for GAS, (Reported) Entered as Reported by: DEBORAH BOSS on 12/06/22 1037 Last Action: Reviewed Past Nfgtwsr-Mzjnnu-Vsiggs Hx Patient Social History Drug of Choice: thc Smoking Status: Former Smoker Type Used: Cigarettes 2nd Hand Smoke Exposure: Yes Recent Hopitalizations: No Alcohol Use?: Yes Have you traveled recently?: No Immunizations Up To Date Tetanus Booster (TDap): More than 5yrs Seasonal Allergies Seasonal Allergies: Yes Surgeries History of Surgeries: Yes (DENTAL) Respiratory History of Respiratory Disorde: No Cardiovascular History of Cardiac Disorders: No Neurological History of Neurological Disord: No Genitourinary History of Genitourinary Disor: No Gastrointestinal History of Gastrointestinal Di: Yes Gastrointestinal Disorders: Diverticulosis Musculoskeletal History of Musculoskeletal Dis: No Endocrine History of Endocrine Disorders: No HEENT History of HEENT Disorders: No Cancer History of Cancer: No Psychosocial History of Psychiatric Problem: Yes Behavioral Health Disorders: Anxiety, Depression Integumentary History of Skin or Integumenta: No Blood Transfusions History of Blood Disorders: No Family Medical History Significant Family History: Cancer (Colorectal Cancer ) Review of Systems-General Constitutional: No chills, No fever Respiratory: No cough, No short of breath Gastrointestinal: No abdominal pain, No constipation, No diarrhea, No nausea, No vomiting Genitourinary: No dysuria Psychiatric/Neurological: Denies Headache, Denies Numbness, Denies Tingling Physical Exam-General Problems Physical Exam Vital Signs Vital Signs - First Documented 12/05/22 16:09 Temp 36.6 Pulse 78 Resp 18 B/P (MAP) 149/100 (116) Pulse Ox 98 O2 Delivery Room Air Capillary Refill : Less Than 3 Seconds General Appearance: no apparent distress Respiratory: chest non-tender, lungs clear, normal breath sounds Cardiovascular: normal peripheral pulses, regular rate, rhythm, no edema, no murmur Gastrointestinal: normal bowel sounds, non tender, soft Extremities: non-tender, normal inspection, no pedal edema, no calf tenderness Skin: normal color, warm/dry Data Review Labs Laboratory Tests 12/05/22 16:27: Urine Color YELLOW, Urine Clarity CLEAR, Urine pH 6.5, Urine Specific [place] >=1.030, Urine Protein NEGATIVE, Urine Glucose (UA) NEGATIVE, Urine Ketones TRACEH, Urine Nitrite NEGATIVE, Urine Bilirubin NEGATIVE, Urine Urobilinogen 0.2, Urine Leukocyte Esterase NEGATIVE, Urine RBC (Auto) NEGATIVE, Urine RBC 0- 2, Urine WBC 0-2, Urine Squamous Epithelial Cells RARE, Urine Crystals PRESENTH, Urine Amorphous Sediment FEW LEE URATESH, Urine Bacteria TRACE, Urine Casts NONE, Urine Mucus LARGEH, Urine Culture Indicated NO 12/05/22 16:55: White Blood Count 13.2H, Red Blood Count 4.82, Hemoglobin 15.6, Hematocrit 45, Mean Corpuscular Volume 94, Mean Corpuscular Hemoglobin 32, Mean Corpuscular Hemoglobin Concent 34, Red Cell Distribution Width 11.8, Platelet Count 278, Mean Platelet Volume 10.3, Immature Granulocyte % (Auto) 0, Neutrophils (%) (Auto) 78H, Lymphocytes (%) (Auto) 16, Monocytes (%) (Auto) 6, Eosinophils (%) (Auto) 0, Basophils (%) (Auto) 1, Neutrophils # (Auto) 10.2H, Lymphocytes # (Auto) 2.1, Monocytes # (Auto) 0.7, Eosinophils # (Auto) 0.1, Basophils # (Auto) 0.1, Immature Granulocyte # (Auto) 0.1, Sodium Level 141, Potassium Level 4.1, Chloride Level 104, Carbon Dioxide Level 28, Anion Gap 9, Blood Urea Nitrogen 12, Creatinine 0.81, Estimat Glomerular Filtration Rate 117, BUN/Creatinine Ratio 15, Glucose Level 89, Calcium Level 9.3, Corrected Calcium 8.9, Total Bilirubin 0.6, Aspartate Amino Transf (AST/SGOT) 17, Alanine Aminotransferase (ALT/SGPT) 21, Alkaline Phosphatase 48, Total Protein 7.6, Albumin 4.5, Amylase Level 51, Lipase 19 12/05/22 18:48: Lactic Acid Level 1.02 12/06/22 05:36: White Blood Count 12.9H, Red Blood Count 4.52, Hemoglobin 14.4, Hematocrit 41, Mean Corpuscular Volume 90, Mean Corpuscular Hemoglobin 32, Mean Corpuscular Hemoglobin Concent 35, Red Cell Distribution Width 11.6, Platelet Count 244, Mean Platelet Volume 10.1, Sodium Level 138, Potassium Level 3.7, Chloride Level 107, Carbon Dioxide Level 19L, Anion Gap 12, Blood Urea Nitrogen 9, Creatinine 0.75, Estimat Glomerular Filtration Rate 120, BUN/Creatinine Ratio 12, Glucose Level 95, Calcium Level 8.6, Corrected Calcium 8.7, Total Bilirubin 1.6H, Aspartate Amino Transf (AST/SGOT) 18, Alanine Aminotransferase (ALT/SGPT) 19, Alkaline Phosphatase 40, Total Protein 6.9, Albumin 3.[address] ABDOMEN/PELVIS W PROCEDURE: CT abdomen and pelvis with contrast. TECHNIQUE: Multiple contiguous axial images were obtained through the abdomen and pelvis after administration of intravenous contrast. Auto Exposure Controls were utilized during the CT exam to meet ALARA standards for radiation dose reduction. All CT scans use one or more of the following dose optimizing techniques: automated exposure control, MA and/or KvP adjustment based on patient size and exam type or iterative reconstruction. INDICATION: Abdominal cramping and vomiting. COMPARISON: Correlation is made with prior CT from 10/21/2019. FINDINGS: The lung bases are clear. The liver and gallbladder are unremarkable. There is no biliary ductal dilatation. Pancreas and spleen are unremarkable. No adrenal mass is identified. Kidneys are unremarkable. There is no hydronephrosis. Aorta is nonaneurysmal. There is diverticulosis of the descending and sigmoid colon. There is wall thickening and perisigmoidal inflammatory stranding present, consistent with acute diverticulitis. There is a small area of low attenuation in the wall of the sigmoid measuring 19 mm, which may represent intramural abscess. There is no obstruction. No free fluid is seen. There is no free air. Bladder and prostate are unremarkable. IMPRESSION: Findings consistent with acute sigmoid diverticulitis or potential early intramural abscess. No extraluminal fluid collection or evidence of bowel obstruction is detected. Assessment/Plan Assessment/Plan Assessment/Plan Jessee Figueroa is a 37yo male presenting with Diverticulitis Uncomplicated Diverticulitis Abdominal Pain, Vomiting, Leukocytosis CT Abdomen/Pelvis No signs of complications; Perforations, Large Abscess needing urgent surgical attention Potential small Abscess 19mm Bowel Rest (NPO) Continue Abx (Zosyn) Pain management Consider Advance diet w/ improvement of symptoms Consider repeat imaging in status declines Abdominal Pain Resolved Nausea/Vomiting Resolved MARVA BHATIA DO 12/06/22 1304: History of Present Illness History of Present Illness History of Present Illness Consult requested for diverticulitis. Patient is a 37 year old male with llq abdominal pain that began yesterday. Sharp constant pain. Did not go away. No radiation of pain. 6/10 pain. Nothing really made better except the antibiotics have seemed to make it decrease this morning. Touching the area made it worse. Was having nausea and vomiting and thought may have had a little blood in the emesis. Had ct scan consistent with diverticulitis possible early intramural abscess. Allergies and Home Medications Allergies Coded Allergies: No Known Drug Allergies (Unverified , 04/17/13) Patient Home Medication List Home Medication List Reviewed: Yes Famotidine (Heartburn Relief) 20 Mg Tablet, 20 MG PO DAILY PRN for HEARTBURN, (Reported) Entered as Reported by: DEBORAH BOSS on 12/06/22 1037 Last Action: Reviewed Simethicone (Gas-X) 125 Mg Capsule, 125 MG PO Q8H PRN for GAS, (Reported) Entered as Reported by: DEBORAH BOSS on 12/06/22 1037 Last Action: Reviewed Past Zseiltc-Jmuemv-Qrafrc Hx Reviewed Nursing Assessment Reviewed/Agree w Nursing PMH: Yes Family Medical History Significant Family History: Cancer (Colorectal Cancer ) Review of Systems-General Constitutional: No chills, No fever Gastrointestinal: abdominal pain (LLQ); No constipation, No diarrhea; nausea, vomiting Genitourinary: No decreased output, No discharge Musculoskeletal: No back pain, No joint pain Skin: No change in color, No change in hair/nails Psychiatric/Neurological: Denies Headache, Denies Numbness, Denies Tingling All Other Systems Reviewed Negative Unless Noted: Yes (Negative excepted noted.) Physical Exam-General Problems Physical Exam General Appearance: WD/WN, no apparent distress HEENT: PERRL/EOMI, normal ENT inspection Neck: non-tender, supple Respiratory: chest non-tender, no respiratory distress, no accessory muscle use Cardiovascular: regular rate, rhythm, no JVD Gastrointestinal: soft, tenderness Rectal: deferred Back: normal inspection, no CVA tenderness Extremities: non-tender, no pedal edema Neurologic/Psychiatric: alert, normal mood/affect, oriented x 3 Skin: normal color, warm/dry Lymphatic: no adenopathy Assessment/Plan Assessment/Plan Assessment/Plan llq abdominal pain diverticulitis possible early intramural abscess nausea vomiting Has been npo. Conservative measures for now. Pain improving will start sips of clears. On Zosyn. Iv fluids If conservative management works would recommend colonoscopy outpatient about 6- 8 weeks after healed. Supervisory-Addendum Brief Verification & Attestation Participated in pt care: history, MDM, physical Personally performed: exam, history, MDM, supervision of care Care discussed with: Medical Student Procedures: n/a Results interpretation: Verified all documentation Verification and Attestation of Medical Student E/M Service A medical student performed and documented this service in my presence. I reviewed and verified all information documented by the medical student and made modifications to such information, when appropriate. I personally performed the physical exam and medical decision making. Marva Bhatia, Dec 06, 2022,13:08 ALIEEN COHEN Dec 06, 2022 06:38 MARVA BHATIA DO Dec 06, 2022 13:04
[2022-12-06] MEDS ORDERED: FAMO20TA25 PO (10:37)
[2022-12-06] MEDS ORDERED: SIME125C PO (10:37)
--- NOTE | 2022-12-06 19:03 | History & Physical ---
GRAYSON FOSTER 12/06/22 1903: History of Present Illness History of Present Illness Reason for visit/HPI Mr. Figueroa is a 37 year old male with a PMHx of diverticulosis complicated by diverticulitis who presented to the [facility] ED on 12/05 with abdominal pain, nausea, vomiting, and one episode of hematemesis with approximately a tablespoon of bright red blood. The patient reports the abdominal pain is sharp, located in his LLQ, and did not improve with simethicone. The patient reports his initial and most recent episode of diverticulitis was in 2019. The patient received hospital care followed by a colonoscopy. The patient reports diverticulosis was found.The patient reports his pain has decreased to a 1/10, was a 6/10 on arrival to the ED. The patient denies more episodes of hematemisis and denies hematochezia. CT imaging displayed diverticulitis of the sigmoid colon. The patient has been admitted to the Hospitalist service for management of acute diverticulitis with Surgery following. Date of Admission Dec 05, 2022 at 18:44 Date Seen by a Provider: Dec 06, 2022 Time Seen by a Provider: 11:30 I consulted on this patient on 12/06/22 18:56 Attending Physician No,Local Physician Admitting Physician Admitting Physician: Brown Oreilly MD Attending Physician: Brown Oreilly MD Consult General Surgery Allergies and Home Medications Allergies Coded Allergies: No Known Drug Allergies (Unverified , 04/17/13) Patient Home Medication List Home Medication List Reviewed: Yes Famotidine (Heartburn Relief) 20 Mg Tablet, 20 MG PO DAILY PRN for HEARTBURN, (Reported) Entered as Reported by: DEBORAH BOSS on 12/06/22 1037 Last Action: Held Simethicone (Gas-X) 125 Mg Capsule, 125 MG PO Q8H PRN for GAS, (Reported) Entered as Reported by: DEBORAH BOSS on 12/06/22 1037 Last Action: Held Past Wshqtmy-Lherpf-Cfmuzl Hx Patient Social History Tobacco Use?: No Tobacco type used: Cigarettes Smoking Status: Former Smoker Smokeless Tobacco Frequency: Never a User Use of E-Cig and/or Vaping dev: No Substance use?: No Alcohol Use?: Yes Alcohol Frequency: Rarely Pt feels they are or have been: No Immunizations Up To Date First/Initial COVID19 Vaccinat: X3 Second COVID19 Vaccination Stan: X3 Seasonal Allergies Seasonal Allergies: Yes Current Status Advance Directives: No Communicates: Verbally Primary Language: Swiss Preferred Spoken Language: Swiss Is interpretation needed?: No Sensory deficits: Vision impairment Past Medical History Diverticulosis Anxiety, Depression Blood Disorders: No Family Medical History Cancer (Colorectal Cancer - paternal grandfather at age 70) Review of Systems Constitutional: No chills, No fever, No malaise, No weakness EENTM: No hearing loss, No blurred vision, No vision loss, No nose congestion, No throat pain Respiratory: no symptoms reported; No cough, No short of breath Cardiovascular: no symptoms reported; No chest pain, No edema Gastrointestinal: LLQ, abdominal pain (LLQ); No melena, No nausea, No vomiting Genitourinary: no symptoms reported; No dysuria, No hematuria Musculoskeletal: no symptoms reported; No joint pain Skin: no symptoms reported, rash Psychiatric/Neurological: No Symptoms Reported; Denies Headache Physical Exam Vital Signs Vital Signs - First Documented 12/05/22 12/06/22 16:09 08:00 Temp 36.6 Pulse 78 Resp 18 B/P (MAP) 149/100 (116) Pulse Ox 98 O2 Delivery Room Air O2 Flow Rate 0.00 Capillary Refill : Less Than 3 Seconds Height, Weight, BMI Height: 6'" Weight: 185lbs. oz. [id number]; 26.18 BMI Method:Stated General Appearance: No Apparent Distress, WD/WN Respiratory: Chest Non Tender, Normal Breath Sounds, No Accessory Muscle Use, No Respiratory Distress Cardiovascular: Regular Rate, Rhythm, No Edema Gastrointestinal: Normal Bowel Sounds, Soft, Other (mild tenderness of LLQ) Extremity: No Pedal Edema Neurologic/Psychiatric: Alert, Oriented x3, Normal Mood/Affect Skin: Normal Color, Warm/Dry Assessment/Plan Assessment and Plan Problems: (1) DVT prophylaxis Status: Acute Assessment & Plan: Lovenox 40mg SC qd SCDs Increase ambulation as tolerated (2) Sigmoid diverticulitis Status: Acute Assessment & Plan: Appreciate plan per Surgery Zosyn 4.5gm - 100mls @ 25mls/hr NPO. As abdominal pain subsides, begin initiating clear liquids and advancing diet as tolerated Admission Diagnosis Admission Status: Inpatient Order (span 2 midnights) Reason for Inpatient Admission: Diverticulitis BROWN OREILLY MD 12/06/22 1920: Allergies and Home Medications Allergies Coded Allergies: No Known Drug Allergies (Unverified , 04/17/13) Patient Home Medication List Famotidine (Heartburn Relief) 20 Mg Tablet, 20 MG PO DAILY PRN for HEARTBURN, (Reported) Entered as Reported by: DEBORAH BOSS on 12/06/22 1037 Last Action: Held Simethicone (Gas-X) 125 Mg Capsule, 125 MG PO Q8H PRN for GAS, (Reported) Entered as Reported by: DEBORAH BOSS on 12/06/22 1037 Last Action: Held Supervisory-Addendum Brief Verification & Attestation Participated in pt care: history, MDM, physical Personally performed: exam, history, MDM, supervision of care Care discussed with: Medical Student Procedures: n/a Verification and Attestation of Medical Student E/M Service A medical student performed and documented this service in my presence. I reviewed and verified all information documented by the medical student and made modifications to such information, when appropriate. I personally performed the physical exam and medical decision making. Brown Oreilly, Dec 06, 2022,19:20 GRAYSON FOSTER Dec 06, 2022 19:03 BROWN OREILLY MD Dec 06, 2022 19:20
[2022-12-06] MEDS: ENOXAPARIN 40 MG/0.4 ML (LOVENOX) SYR SC SCH (20:06)
[2022-12-07] VITALS: BP 124/77
[2022-12-07] MEDS: PIPERACILLIN SODIUM/TAZOBACTAM 4.5 GM in NS (IVPB) 100 ML IV SCH ×2 (02:44→10:09)
[2022-12-07 05:23] LABS: HEMATOCRIT 39 % (40-54); HEMOGLOBIN 14.1 g/dL (13.3-17.7); MEAN CORPUSCULAR HEMOGLOBIN 32 pg (25-34); MEAN CORPUSCULAR HGB CONC 36 g/dL (32-36); MEAN CORPUSCULAR VOLUME 89 fL (80-99); MEAN PLATELET VOLUME 10.1 fL (9.0-12.2); PLATELET COUNT 228 10^3/uL (130-400); WHITE BLOOD COUNT 12.1 10^3/uL (4.3-11.0)
[2022-12-07] MEDS: KETOROLAC 15 MG/ML VIAL IV SCH ×2 (05:36→12:23)
[2022-12-07] MEDS: NS IV 1000 ML 1,000 ML IV SCH ×2 (05:36→12:26)
[2022-12-07 05:45] LABS: ALBUMIN 3.6 GM/DL (3.2-4.5); POTASSIUM 3.6 MMOL/L (3.6-5.0)
[2022-12-07 05:47] LABS: CALCIUM 8.3 MG/DL (8.5-10.1)
[2022-12-07 05:48] LABS: TOTAL PROTEIN 6.4 GM/DL (6.4-8.2)
[2022-12-07 05:50] LABS: BILIRUBIN,TOTAL 1.4 MG/DL (0.1-1.0)
[2022-12-07 05:51] LABS: CREATININE SERUM 0.7 MG/DL (0.60-1.30)
--- NOTE | 2022-12-07 07:38 | Progress Note - Surgery ---
AILEEN COHEN 12/07/22 0738: Subjective Date Seen by a Provider: Dec 07, 2022 Time Seen by a Provider: 06:35 Subjective/Events-last exam Pt was laying in bed asleep before interview. Pt states that he is doing well w/o any complaints. Pt is tolerating clears and passing gas. Pt had a two small bowel movements since last visit w/ him yesterday; states that there was very little stool. Pt states that he has had some abdominal cramping that he associates with passing gas, but improves with pain medication. There was slight pain upon palpation of the LLQ which is consistent from yesterday, but seems to be improving. Review of Systems General: No Chills HEENT: No Head Aches Cardiovascular: No: Chest Pain, Palpitations, Edema Gastrointestinal: No: Nausea, Vomiting, Diarrhea, Constipation Genitourinary: No Dysuria, No Frequency Neurological: No: Weakness, Numbness Focused Exam Lactate Level 12/05/22 18:48: Lactic Acid Level 1.02 Objective Exam Vital Signs Date Time Temp Pulse Resp B/P (MAP) Pulse Ox O2 Delivery O2 Flow Rate FiO2 12/07/22 00:00 36.5 85 18 124/77 (93) 96 Room Air 12/06/22 20:11 Room Air 12/06/22 19:08 37.0 84 18 132/77 (95) 97 Room Air 12/06/22 18:26 37.1 12/06/22 17:39 37.1 12/06/22 16:14 37.1 80 18 127/74 (91) 98 Room Air 12/06/22 16:00 36.9 88 18 133/79 (97) 96 Room Air 0.00 0.00 12/06/22 15:03 36.9 12/06/22 11:26 36.9 88 18 133/79 (97) 96 Room Air 12/06/22 08:00 97 Room Air 0.00 12/06/22 07:51 36.9 78 18 133/71 (91) 97 Room Air I & O 12/07/22 06:59 Intake Total 940 ml Output Total 1 ml Balance 939 ml Capillary Refill : Less Than 3 Seconds General Appearance: No Apparent Distress HEENT: PERRL/EOMI Neck: Non Tender, Supple Respiratory: Chest Non Tender, Normal Breath Sounds, No Accessory Muscle Use, No Respiratory Distress Cardiovascular: Regular Rate, Rhythm, No Edema Peripheral Pulses: 2+ Radial Pulses (R), 2+ Radial Pulses (L) Gastrointestinal: normal bowel sounds, soft, tenderness (LLQ) Extremity: Normal Inspection, Non Tender, No Calf Tenderness, No Pedal Edema Neurologic/Psychiatric: Alert, Oriented x3, Normal Mood/Affect Skin: Normal Color, Warm/Dry Results Lab Laboratory Tests 12/07/22 05:07: White Blood Count 12.1H, Red Blood Count 4.41, Hemoglobin 14.1, Hematocrit 39L, Mean Corpuscular Volume 89, Mean Corpuscular Hemoglobin 32, Mean Corpuscular Hemoglobin Concent 36, Red Cell Distribution Width 11.4, Platelet Count 228, Mean Platelet Volume 10.1, Sodium Level 136, Potassium Level 3.6, Chloride Level 106, Carbon Dioxide Level 19L, Anion Gap 11, Blood Urea Nitrogen 8, Creatinine 0.70, Estimat Glomerular Filtration Rate 122, BUN/Creatinine Ratio 11, Glucose Level 90, Calcium Level 8.3L, Corrected Calcium 8.6, Total Bilirubin 1.4H, Aspartate Amino Transf (AST/SGOT) 15, Alanine Aminotransferase (ALT/SGPT) 18, Alkaline Phosphatase 40, Total Protein 6.4, Albumin 3.6 Microbiology 12/05/22 Blood Culture - Preliminary, Resulted No growth Assessment/Plan Assessment/Plan Assessment/Plan llq abdominal pain diverticulitis possible early intramural abscess nausea vomiting Pt is tolerating clears; mild cramping with pass gas; 2 small bowel movements; consider advancing diet Denies nausea/vomiting Continue Zosyn IV fluids If conservative management works would recommend colonoscopy outpatient about 6- 8 weeks after healed. MARKUS WU DO 12/07/22 8610: Subjective Subjective/Events-last exam Patient felling better today. Not really having any llq pain now at this time. Having bowel function. No nausea or vomiting. Tolerating clears. Denies n/v fever sweats chills shortness of breath or chest pain. Wanting to go home. Objective Exam General Appearance: No Apparent Distress, WD/WN HEENT: PERRL/EOMI, Normal ENT Inspection Neck: Normal Inspection, Non Tender, Supple Respiratory: Chest Non Tender, No Accessory Muscle Use, No Respiratory Distress Cardiovascular: Regular Rate, Rhythm, No JVD Gastrointestinal: non tender, soft; No tenderness (LLQ) Extremity: Normal Inspection, Non Tender, No Calf Tenderness Neurologic/Psychiatric: Alert, Oriented x3, Normal Mood/Affect Skin: Normal Color, Warm/Dry Lymphatic: No Adenopathy Assessment/Plan Assessment/Plan Assessment/Plan llq abdominal pain diverticulitis possible early intramural abscess nausea vomiting Pt is tolerating clears; discussed staying on clears another couple days and then slowly advancing. Denies nausea/vomiting CHange Abx to oral. IV fluids If conservative management works would recommend colonoscopy outpatient about 6- 8 weeks after healed. Supervisory-Addendum Brief Verification & Attestation Participated in pt care: history, MDM, physical Personally performed: exam, history, MDM, supervision of care Care discussed with: Medical Student Procedures: n/a Results interpretation: Verified all documentation Verification and Attestation of Medical Student E/M Service A medical student performed and documented this service in my presence. I reviewed and verified all information documented by the medical student and made modifications to such information, when appropriate. I personally performed the physical exam and medical decision making. Markus Wu, Dec 07, 2022,12:30 AILEEN COHEN Dec 07, 2022 07:38 MARKUS WU DO Dec 07, 2022 23:30
[2022-12-07 08:17] VITALS: BP 128/85
[2022-12-07] MEDS ORDERED: AMOX1TAB12 PO (12:33)
--- NOTE | 2022-12-07 14:26 | Discharge Summary ---
GRAYSON FOSTER 12/07/22 1415: Discharge Summary Hospital Course Was the Problem List Reviewed?: Yes Problems/Dx: (1) DVT prophylaxis Status: Resolved Assessment & Plan: Patient received Lovenox therapy during hospital stay (2) Sigmoid diverticulitis Status: Acute Assessment & Plan: Appreciate plan per Surgery Zosyn 4.5gm - 100mls @ 25mls/hr -> transition to PO antibiotic therapy upon discharge Advance diet as tolerated Hospital Course Date of Admission: Dec 05, 2022 at 18:44 Admission Diagnosis : Family Physician/Provider: No,Local Physician Date of Discharge: 12/07/22 Discharge Diagnosis: [ Acute diverticulitis] Hospital Course: [Mr. Figueroa is a 37 year old male with a PMHx of diverticulosis complicated by diverticulitis who presented to the [facility] ED on 12/05 with abdominal pain, nausea, vomiting, and one episode of hematemesis with approximately a tablespoon of bright red blood. CT imaging displayed diverticulitis of the sigmoid colon. The patient was admitted to the Hospitalist service for management of acute diverticulitis with Surgery following. Zosyn therapy was initiated with NPO orders and management of abdominal pain with toradol. The patient did well overnight with decreased abdominal pain and tolerated clear fluids. The patient is stable for discharge at this time with transition to PO Augmentin. This is a brief summary of the patient's hospital course, further detail is documented throughout the patient's chart.] Labs and Pending Lab Test: Laboratory Tests 12/07/22 05:07: White Blood Count 12.1H, Red Blood Count 4.41, Hemoglobin 14.1, Hematocrit 39L, Mean Corpuscular Volume 89, Mean Corpuscular Hemoglobin 32, Mean Corpuscular Hemoglobin Concent 36, Red Cell Distribution Width 11.4, Platelet Count 228, Mean Platelet Volume 10.1, Sodium Level 136, Potassium Level 3.6, Chloride Level 106, Carbon Dioxide Level 19L, Anion Gap 11, Blood Urea Nitrogen 8, Creatinine 0.70, Estimat Glomerular Filtration Rate 122, BUN/Creatinine Ratio 11, Glucose Level 90, Calcium Level 8.3L, Corrected Calcium 8.6, Total Bilirubin 1.4H, Aspartate Amino Transf (AST/SGOT) 15, Alanine Aminotransferase (ALT/SGPT) 18, Alkaline Phosphatase 40, Total Protein 6.4, Albumin 3.6 Microbiology 12/05/22 Blood Culture - Preliminary, Resulted No growth Home Meds Active Amox Tr-K Clv 875-125 mg Tab (Amoxicillin/Potassium Clav) 875 Mg-125 Mg Tablet 1 Each PO BID 7 Days Reported Heartburn Relief (Famotidine) 20 Mg Tablet 20 Mg PO DAILY PRN Gas-X (Simethicone) 125 Mg Capsule 125 Mg PO Q8H PRN Assessment/Pt Instructions Discharge instructions have been provided per Hospitalist service and Surgery. Follow-up with PCP and General Surgery is recommended. Discharge Planning: <30 minutes discharge planning Discharge Instructions Discharge Diet: Other Diet (advance diet from clear liquids as tolerated) Activity as Tolerated: Yes Discharge Physical Examination Vital Signs Vital Signs Date Time Temp Pulse Resp B/P (MAP) Pulse Ox O2 Delivery O2 Flow Rate FiO2 12/07/22 08:17 36.6 70 18 128/85 (99) 98 Room Air 12/06/22 16:00 0.00 0.00 General Appearance: No Apparent Distress, WD/WN Respiratory: No Accessory Muscle Use, No Respiratory Distress, Wheezing (mild expiratory wheezing bilaterally) Cardiovascular: Regular Rate, Rhythm, No Edema Gastrointestinal: Normal Bowel Sounds, Non Tender, Soft Extremity: No Pedal Edema Skin: Normal Color, Warm/Dry Neurologic/Psychiatric: Alert, Oriented x3, Normal Mood/Affect Allergies: Coded Allergies: No Known Drug Allergies (Unverified , 04/17/13) Discharge Summary Date of Admission Dec 05, 2022 at 18:44 Date of Discharge Discharge Date: Dec 07, 2022 Discharge Time: 12:00 Admission Diagnosis Acute diverticulitis Consults/Procedures Consulations General Surgery Discharge Diagnosis (1) DVT prophylaxis Status: Resolved Assessment & Plan: Lovenox 40mg SC qd SCDs Increase ambulation as tolerated (2) Sigmoid diverticulitis Status: Acute Assessment & Plan: Appreciate plan per Surgery Zosyn 4.5gm - 100mls @ 25mls/hr NPO. As abdominal pain subsides, begin initiating clear liquids and advancing diet as tolerated NABILA VIDAL MD 12/07/22 2005: Discharge Summary Discharge Physical Examination Allergies: Coded Allergies: No Known Drug Allergies (Unverified , 04/17/13) Supervisory-Addendum Brief Supervisory Addendum Verification and Attestation of Medical Student E/M Service A medical student performed and documented this service in my presence. I reviewed and verified all information documented by the medical student and made modifications to such information, when appropriate. I personally performed the physical exam and medical decision making. Nabila Vidal, Dec 07, 2022,20:05 GRAYSON FOSTER Dec 07, 2022 14:15 NABILA VIDAL MD Dec 07, 2022 20:05
[2022-12-07 15:29] VITALS: BP 150/99
[2022-12-07 17:44] VITALS: BP 150/99
== END 2022-12-07 17:44 | disposition home or self-care (01) | DRG 379 ==
LOC: EDUNIT# 15:51 → ER 15:52 → 4TH 18:44
PROVIDERS: ADMIT Family Medicine; ATTEND Family Medicine
DX: K57.33 Diverticulitis of large intestine without perforation or abscess with bleeding (principal); F41.9 Anxiety disorder, unspecified; F32.A Depression, unspecified; Z87.891 Personal history of nicotine dependence
CPT/HCPCS: 36415; 74177; 80053; 81000; 82150; 83605; 83690; 85025; 85027; 87040

== ENCOUNTER 2023-03-06 04:52 | Emergency (ER) | payer SELFPAY ==
[~2023-03-06] VITALS: Ht 195.6 cm; Wt 82.0 kg
[~2023-03-06 04:52] MED LIST changes: +AMOX1TAB12 PO; +FAMO20TA25 PO; +SIME125C PO
[2023-03-06] MEDS ORDERED: LACTATED RINGERS 1,000 ML IV ONE (05:15)
[2023-03-06] MEDS ORDERED: ONDANSETRON 4 MG/2 ML (SDV) Z0FRAN IVP ONE ×2 (05:15→05:30)
--- NOTE | 2023-03-06 05:19 | ED GI ---
General Chief Complaint: Abdominal/GI Problems Stated Complaint: VOMITING,DIARRHEA Source of Information: Patient, Old Records (AN PALMA DO) History of Present Illness Date Seen by Provider: March 06, 2023 Time Seen by Provider: 05:10 Initial Comments PT ARRIVES VIA POV FROM HOME STATES HE BEGAN FEELING BAD AROUND 2330 LAST NIGHT WITH: --NAUSEA AND VOMITING--EMESIS X 6--NO COFFEE-GROUND EMESIS OR HEMATEMESIS --DIARRHEA X 4-5--NO BLACK/BLOODY/TARRY STOOLS --EPIGASTRIC ABDOMINAL PAIN--CRAMPING--STATES "IT'S NOT BAD--MAYBE A 4/10" NO FEVER LAST VOID WAS SOMETIME BEFORE MIDNIGHT, AND URINATED WITHOUT DIFFICULTY WAS FINE ALL DAY NO SUSPICIOUS FOODS ATE CRACKERS AND BROTH AROUND 2100 LAST NIGHT. DAUGHTER AND /FEMALE S.O. WERE SICK WITH SAME SYMPTOMS LAST WEEK. PT HAS HISTORY OF DIVERTICULITIS, LAST EPISODE IN NOVEMBER. NO SURGERY REQUIRED. NO PRIOR SURGERIES OF ANY KIND NO OTHER HISTORY OF GI PROBLEMS SMOKED 1 PPD, QUIT 2021. 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 PCP: PATRICE WHITE AT [facility] (AN PALMA DO) Allergies and Home Medications Allergies Coded Allergies: No Known Drug Allergies (Unverified , 04/17/13) Patient Home Medication List Home Medication List Reviewed: Yes (AN PALMA DO) Amoxicillin/Potassium Clav (Amox Tr-K Clv 875-125 mg Tab) 875 Mg-125 Mg Tablet, 1 EACH PO BID Prescribed by: BROWN OREILLY on 12/07/22 1233 Famotidine (Heartburn Relief) 20 Mg Tablet, 20 MG PO DAILY PRN for HEARTBURN, (Reported) Entered as Reported by: DEBORAH BOSS on 12/06/22 1037 Simethicone (Gas-X) 125 Mg Capsule, 125 MG PO Q8H PRN for GAS, (Reported) Entered as Reported by: DEBORAH BOSS on 12/06/22 1037 Review of Systems Review of Systems Constitutional: no symptoms reported Respiratory: No Symptoms Reported Cardiovascular: No Symptoms Reported Gastrointestinal: See HPI Genitourinary: No Symptoms Reported Musculoskeletal: no symptoms reported Skin: no symptoms reported Psychiatric/Neurological: No Symptoms Reported Endocrine: No Symptoms Reported Hematologic/Lymphatic: No Symptoms Reported (AN PALMA DO) Past Ppnackp-Rullwi-Sjliyk Hx Patient Social History Tobacco Use?: Yes Tobacco type used: Cigarettes Smoking Status: Former Smoker Substance use?: Yes Substance type: Marijuana Alcohol Use?: Yes Alcohol Frequency: Once in a while (AN PALMA DO) Immunizations Up To Date Tetanus Booster (TDap): More than 5yrs First/Initial COVID19 Vaccinat: X3 Second COVID19 Vaccination Stan: X3 Third COVID19 Vaccination Date: X3 (AN PALMA DO) Seasonal Allergies Seasonal Allergies: Yes (AN PALMA DO) Past Medical History Surgery/Hospitalization HX: DIVERTICULOSIS Surgeries: Yes (DENTAL) Respiratory: No Cardiac: No Neurological: No Genitourinary: No Gastrointestinal: Yes Diverticulosis Musculoskeletal: No Endocrine: No HEENT: No Cancer: No Psychosocial: Yes Anxiety, Depression Integumentary: No Blood Disorders: No (AN PALMA DO) Family Medical History Cancer SOCIAL HISTORY: -SMOKED 1 PPD, QUIT 2021 -DRUGS--THC -ETOH--OCCASIONAL USE--ABOUT ONCE A MONTH (AN PALMA DO) Physical Exam Vital Signs Vital Signs - First Documented 03/06/23 03/06/23 05:11 08:50 Temp 36.8 Pulse 80 Resp 20 B/P (MAP) 147/95 (112) Pulse Ox 94 (CARLOS VELASQUEZ MD) Vital Signs Capillary Refill : (AN PALMA DO) Height/Weight/BMI Height: 6'" Weight: 185lbs. oz. 83.367058nk; 26.18 BMI Method:Stated General Appearance: WD/WN, other (VERY LOUD, HARSH, FORCED RETCHING. ) HEENT: PERRL/EOMI Neck: normal inspection Respiratory: normal breath sounds, no respiratory distress, no accessory muscle use Cardiovascular: regular rate, rhythm, no murmur Gastrointestinal: normal bowel sounds, non tender, soft; No distended, No guarding, No rebound, No tenderness, No hernia, No mass Extremities: normal inspection, no pedal edema, normal capillary refill Back: no CVA tenderness Neurologic/Psychiatric: spice miller II-XII nml as tested, no motor/sensory deficits, alert, oriented x 3 Skin: normal color, warm/dry (SCARLETAN K DO) Progress/Results/Core Measures Results/Orders Lab Results Laboratory Tests Test 03/06/23 05:21 03/06/23 05:30 Range/Units Urine Color YELLOW Urine Clarity SL CLOUDY Urine pH 6.0 5-9 Urine Specific [place] >=1.030 1.016-1.022 Urine Protein 2+ H NEGATIVE Urine Glucose (UA) TRACE H NEGATIVE Urine Ketones 3+ H NEGATIVE Urine Nitrite POSITIVE H NEGATIVE Urine Bilirubin 2+ H NEGATIVE Urine Urobilinogen 1.0 < = 1.0 MG/DL Urine Leukocyte Esterase NEGATIVE NEGATIVE Urine RBC (Auto) NEGATIVE NEGATIVE Urine RBC NONE /HPF Urine WBC RARE /HPF Urine Squamous Epithelial Cells RARE /HPF Urine Crystals PRESENT H /LPF Urine Amorphous Sediment LARGE LEE URATES H /LPF Urine Bacteria FEW H /HPF Urine Casts NONE /LPF Urine Mucus MODERATE H /LPF Urine Culture Indicated YES Gastric Fluid Occult Blood NEGATIVE NEGATIVE Urine Opiates Screen NEGATIVE NEGATIVE Urine Oxycodone Screen NEGATIVE NEGATIVE Urine Methadone Screen NEGATIVE NEGATIVE Urine Propoxyphene Screen NEGATIVE NEGATIVE Urine Barbiturates Screen NEGATIVE NEGATIVE Ur Tricyclic Antidepressants Screen NEGATIVE NEGATIVE Urine Phencyclidine Screen NEGATIVE NEGATIVE Urine Amphetamines Screen NEGATIVE NEGATIVE Urine Methamphetamines Screen NEGATIVE NEGATIVE Urine Benzodiazepines Screen NEGATIVE NEGATIVE Urine Cocaine Screen NEGATIVE NEGATIVE Urine Cannabinoids Screen POSITIVE H NEGATIVE White Blood Count 20.4 H 4.3-11.0 10^3/uL Red Blood Count 5.48 4.30-5.52 10^6/uL Hemoglobin 17.5 13.3-17.7 g/dL Hematocrit 49 40-54 % Mean Corpuscular Volume 89 80-99 fL Mean Corpuscular Hemoglobin 32 25-34 pg Mean Corpuscular Hemoglobin Concent 36 32-36 g/dL Red Cell Distribution Width 11.9 10.0-14.5 % Platelet Count 291 130-400 10^3/uL Mean Platelet Volume 10.0 9.0-12.2 fL Immature Granulocyte % (Auto) 1 % Neutrophils (%) (Auto) 87 H 42-75 % Lymphocytes (%) (Auto) 8 L 12-44 % Monocytes (%) (Auto) 4 0-12 % Eosinophils (%) (Auto) 0 0-10 % Basophils (%) (Auto) 0 0-10 % Neutrophils # (Auto) 17.8 H 1.8-7.8 10^3/uL Lymphocytes # (Auto) 1.6 1.0-4.0 10^3/uL Monocytes # (Auto) 0.9 0.0-1.0 10^3/uL Eosinophils # (Auto) 0.0 0.0-0.3 10^3/uL Basophils # (Auto) 0.1 0.0-0.1 10^3/uL Immature Granulocyte # (Auto) 0.1 0.0-0.1 10^3/uL Neutrophils % (Manual) 89 % Lymphocytes % (Manual) 4 % Monocytes % (Manual) 4 % Eosinophils % (Manual) 1 % Band Neutrophils 2 % Blood Morphology Comment NORMAL Erythrocyte Sedimentation Rate 1 0-15 MM/HR Sodium Level 139 135-145 MMOL/L Potassium Level 3.9 3.6-5.0 MMOL/L Chloride Level 100 98-107 MMOL/L Carbon Dioxide Level 21 21-32 MMOL/L Anion Gap 18 H 5-14 MMOL/L Blood Urea Nitrogen 15 7-18 MG/DL Creatinine 0.91 0.60-1.30 MG/DL Estimat Glomerular Filtration Rate 111 BUN/Creatinine Ratio 16 Glucose Level 205 H 70-105 MG/DL Calcium Level 10.5 H 8.5-10.1 MG/DL Corrected Calcium 8.5-10.1 MG/DL Magnesium Level 1.7 1.6-2.4 MG/DL Total Bilirubin 1.6 H 0.1-1.0 MG/DL Aspartate Amino Transf (AST/SGOT) 30 5-34 U/L Alanine Aminotransferase (ALT/SGPT) 50 0-55 U/L Alkaline Phosphatase 58 40-136 U/L C-Reactive Protein High Sensitivity 0.20 0.00-0.50 MG/DL Total Protein 8.5 H 6.4-8.2 GM/DL Albumin 5.0 H 3.2-4.5 GM/DL Amylase Level 55 25-125 U/L Lipase < 4 L 8-78 U/L Influenza Type A (RT-PCR) Not Detected Not Detecte Influenza Type B (RT-PCR) Not Detected Not Detecte SARS-CoV-2 RNA (RT-PCR) Not Detected Not Detecte (CARLOS VELASQUEZ MD) Micro Results Microbiology 03/06/23 Urine Culture - Final, Complete NO GROWTH 03/06/23 C. difficile GDH Antigen & Toxins - Final, Complete (CARLOS VELASQUEZ MD) Vital Signs/I&O 03/06/23 03/06/23 05:11 08:50 Temp 36.8 Pulse 80 96 Resp 20 16 B/P (MAP) 147/95 (112) 113/79 Pulse Ox 94 (CARLOS VELASQUEZ MD) Progress Progress Note : Progress Note PPE WORN COVID AND FLU TESTS ORDERED GIVEN: -IV FLUIDS -ZOFRAN -PROTONIX PT DID VOMIT A SMALL AMOUNT AND HAD A SMALL LIQUID BM ON ARRIVAL--SENT TO LAB FOR ANALYSIS. REVIEWED PRIOR RECORDS, INCLUDING ER VISITS, ADMITS/H&P'S/CONSULTS/DISCHARGE SUMMARIES, TESTS/PROCEDURES. 0600--CARE TURNED OVER TO DR. VELASQUEZ, LAB AND CT PENDING AT THIS TIME. NAUSEA IS IMPROVED AT THIS TIME. (AN PALMA DO) Progress Note : Progress Note I assumed care of this patient from Dr. Palma at shift change. Unfortunately, there was a complete network outage during this period of time. There was no way for a radiologist to read his CT imaging. I viewed and interpreted his CT imaging and found no acute abnormalities requiring admission or surgical intervention. I informed the patient of my interpretation and that a radiologist interpretation was still pending. Patient felt comfortable with discharge at this time. I did discuss the radiologist's report with him by phone later. The radiologist found no acute abnormalities requiring additional treatment. Patient was feeling significantly improved after interventions ordered by Dr. Palma. Discharge instructions and a Zofran prescription were provided on handwritten sheets due to the network outage. He was prescribed Zofran and instructed to take Pepcid twice daily for at least a week. See scanned documents for further details. The radiologist report was later copied into this document. Labs were reviewed. Although WBC was markedly elevated at 20, CRP was low normal which would suggest no bacterial infection. (CARLOS VELASQUEZ MD) Diagnostic Imaging Diagonstic Imaging: CT Plain Films/CT/US/NM/MRI: abdomen, pelvis Comments NAME: MISTY SHERIFF [facility] REC#: [id number] PT STATUS: DEP ER : 1985 PHYSICIAN: AN PALMA DO ADMIT DATE: 03/06/23/ER Signed Date of Exam:03/06/23 CT ABDOMEN/PELVIS W PROCEDURE: CT abdomen and pelvis with contrast. TECHNIQUE: Multiple contiguous axial images were obtained through the abdomen and pelvis after administration of intravenous contrast. Auto Exposure Controls were utilized during the CT exam to meet ALARA standards for radiation dose reduction. All CT scans use one or more of the following dose optimizing techniques: Automated exposure control, MA and/or KvP adjustment based on patient size and exam type or iterative reconstruction. INDICATION: Nausea, vomiting, and diarrhea. Abdominal pain. COMPARISON: 12/05/2022. FINDINGS: Included portions of the lung bases are clear. Small hiatal hernia is noted. CT ABDOMEN: Normal appendix is identified. Small bowel loops are nondilated. Kidneys, adrenal glands, spleen, pancreas, and liver have a normal CT appearance. There is no loculated fluid collection, free fluid, or free air within the abdomen. No abnormal mesenteric or retroperitoneal adenopathy is seen. Osseous structures show no acute abnormalities. CT PELVIS: Urinary bladder is unopacified. No calculi are seen within the urinary bladder. There is no loculated fluid collection, free fluid, or free air. No abnormal adenopathy is seen. Osseous structures show no acute abnormalities. IMPRESSION: 1. No acute abnormality is seen within the abdomen or pelvis. Dictated by: Dictated on workstation # [id number] Dict: 03/06/23 1629 Trans: 03/07/23 1344 [id number] Interpreted by: JESUS SANTORO MD Electronically signed by: JESUS SANTORO MD 03/07/23 1344 (CARLOS VELASQUEZ MD) Departure Impression Primary Impression: Upper abdominal pain Additional Impression: Nausea vomiting and diarrhea Disposition: HOME, SELF-CARE Condition: Improved Departure-Patient Inst. Referrals: NO,LOCAL PHYSICIAN (PCP/Family) Primary Care Physician AN PALMA DO March 06, 2023 05:19 CARLOS VELASQUEZ MD March 11, 2023 20:14
[2023-03-06] MEDS ORDERED: PANTOPRAZOLE 40 MG (PROTONIX) VIAL IV ONE (05:30)
[2023-03-06 05:44] LABS: BASOPHILS # (AUTO) 0.1 10^3/uL (0.0-0.1); BASOPHILS % (AUTO) 0 % (0-10); EOSINOPHILS % (AUTO) 0 % (0-10); HEMATOCRIT 49 % (40-54); HEMOGLOBIN 17.5 g/dL (13.3-17.7); LYMPHOCYTES # (AUTO) 1.6 10^3/uL (1.0-4.0); LYMPHOCYTES % (AUTO) 8 % (12-44); MEAN CORPUSCULAR HEMOGLOBIN 32 pg (25-34); MEAN CORPUSCULAR HGB CONC 36 g/dL (32-36); MEAN CORPUSCULAR VOLUME 89 fL (80-99); MONOCYTES # (AUTO) 0.9 10^3/uL (0.0-1.0); MONOCYTES % (AUTO) 4 % (0-12); NEUTROPHILS # (AUTO) 17.8 10^3/uL (1.8-7.8); NEUTROPHILS % (AUTO) 87 % (42-75); PLATELET COUNT 291 10^3/uL (130-400); WHITE BLOOD COUNT 20.4 10^3/uL (4.3-11.0)
[2023-03-06 05:47] LABS: BILIRUBIN,URINE 2+ (NEGATIVE); CLARITY,URINE SL CLOUDY; COLOR,URINE YELLOW; GLUCOSE, URINE (UA) TRACE (NEGATIVE); KETONES,URINE 3+ (NEGATIVE); LEUKOCYTE ESTERASE ,URINE NEGATIVE (NEGATIVE); NITRITE,URINE POSITIVE (NEGATIVE); PROTEIN,URINE 2+ (NEGATIVE)
[2023-03-06 06:01] LABS: BACTERIA,URINE FEW /HPF; SQUAMOUS EPITHELIAL CELL,UR RARE /HPF; WBC,URINE RARE /HPF
[2023-03-06 06:02] LABS: AMORPHOUS SEDIMENT,UR LARGE AMOR URATES /LPF
[2023-03-06 06:06] LABS: AMPHETAMINE SCREEN, URINE NEGATIVE (NEGATIVE); BARBITURATE SCREEN URINE NEGATIVE (NEGATIVE); BENZODIAZEPINES SCREEN URINE NEGATIVE (NEGATIVE); CANNABINOID SCREEN, URINE POSITIVE (NEGATIVE); COCAINE SCREEN URINE NEGATIVE (NEGATIVE); METHADONE STAT NEGATIVE (NEGATIVE); OPIATE SCREEN URINE NEGATIVE (NEGATIVE); OXYCODONE STAT NEGATIVE (NEGATIVE); PROPOXYPHENE STAT NEGATIVE (NEGATIVE); TRICYCLIC ANTIDEPRESSANTS SCRE NEGATIVE (NEGATIVE)
[2023-03-06 06:09] LABS: CHLORIDE 100 MMOL/L (98-107); POTASSIUM 3.9 MMOL/L (3.6-5.0); SODIUM 139 MMOL/L (135-145)
[2023-03-06 06:10] LABS: AMYLASE 55 U/L (25-125); CALCIUM 10.5 MG/DL (8.5-10.1)
[2023-03-06 06:11] LABS: GLUCOSE 205 MG/DL (70-105); TOTAL PROTEIN 8.5 GM/DL (6.4-8.2)
[2023-03-06 06:12] LABS: CARBON DIOXIDE 21 MMOL/L (21-32)
[2023-03-06 06:13] LABS: BILIRUBIN,TOTAL 1.6 MG/DL (0.1-1.0)
[2023-03-06 06:14] LABS: ALKALINE PHOSPHATASE 58 U/L (40-136)
[2023-03-06 06:15] LABS: CREATININE SERUM 0.91 MG/DL (0.60-1.30); GFR ESTIMATED 111
[2023-03-06 06:15] LABS: OCCULT BLOOD,GASTRIC FLUID NEGATIVE (NEGATIVE)
[2023-03-06 06:16] LABS: BUN/CREATININE RATIO 16
[2023-03-06 06:17] LABS: ALANINE AMINOTRANSFERASE 50 U/L (0-55); MAGNESIUM 1.7 MG/DL (1.6-2.4)
[2023-03-06 06:18] LABS: LIPASE < 4 U/L (8-78)
[2023-03-06 06:27] LABS: BAND NEUTROPHILS 2 %; EOSINOPHILS % (MANUAL) 1 %; LYMPHOCYTES % (MANUAL) 4 %; MONOCYTES % (MANUAL) 4 %; NEUTROPHILS % (MANUAL) 89 %; RBC MORPH NORMAL
[2023-03-06 06:30] LABS: ERYTHROCYTE SEDIMENTATION RATE 1 MM/HR (0-15)
[2023-03-06 08:50] VITALS: BP 113/79
[2023-03-06] MEDS ORDERED: HOLD METFORMIN - RECEIVED CONTRAST 20 ML VIAL IV SCH (16:30)
[2023-03-06] MEDS ORDERED: IOHEXOL 350 MG/ML 100 ML (OMNIPAQUE 350) VIAL IV ONE (16:30)
[2023-03-06] MEDS ORDERED: NS 100 ML (IVPB) BAG IV ONE (16:30)
--- NOTE | 2023-03-06 16:42 | Diagnostic Imaging Report ---
PROCEDURE: CT abdomen and pelvis with contrast. TECHNIQUE: Multiple contiguous axial images were obtained through the abdomen and pelvis after administration of intravenous contrast. Auto Exposure Controls were utilized during the CT exam to meet ALARA standards for radiation dose reduction. All CT scans use one or more of the following dose optimizing techniques: Automated exposure control, MA and/or KvP adjustment based on patient size and exam type or iterative reconstruction. INDICATION: Nausea, vomiting, and diarrhea. Abdominal pain. COMPARISON: 12/05/2022. FINDINGS: Included portions of the lung bases are clear. Small hiatal hernia is noted. CT ABDOMEN: Normal appendix is identified. Small bowel loops are nondilated. Kidneys, adrenal glands, spleen, pancreas, and liver have a normal CT appearance. There is no loculated fluid collection, free fluid, or free air within the abdomen. No abnormal mesenteric or retroperitoneal adenopathy is seen. Osseous structures show no acute abnormalities. CT PELVIS: Urinary bladder is unopacified. No calculi are seen within the urinary bladder. There is no loculated fluid collection, free fluid, or free air. No abnormal adenopathy is seen. Osseous structures show no acute abnormalities. IMPRESSION: 1. No acute abnormality is seen within the abdomen or pelvis. Dictated by: Dictated on workstation # [id number]
== END 2023-03-06 08:50 | disposition home or self-care (01) ==
LOC: EDUNIT# 04:52 → ER 04:54
DX: R10.13 Epigastric pain (principal); R11.2 Nausea with vomiting, unspecified; R19.7 Diarrhea, unspecified; Z87.891 Personal history of nicotine dependence; Z20.822 Contact with and (suspected) exposure to COVID-19
CPT/HCPCS: 36415; 74177; 80053; 80306; 81000; 82150; 82271; 83690; 83735; 85007; 85027; 85652; 86141; 87088; 87324; 87449; 87636; 96374; 96375

== ENCOUNTER 2023-06-05 17:45 | Emergency (ER) | payer SELFPAY ==
[~2023-06-05] VITALS: Ht 183 cm; Wt 80.0 kg
[2023-06-05] MEDS ORDERED: NS IV 1000 ML 1,000 ML IV STA (18:04)
[2023-06-05] MEDS ORDERED: morphine INJ 10 MG/ML 1ML (SYR OR VIAL) IVP STA (18:04)
--- NOTE | 2023-06-05 18:09 | ED Abdominal Pain ---
General Chief Complaint: Abdominal/GI Problems Stated Complaint: VOMITING - FEVER Nursing Triage Note: PT WENT TO PCP LAST WEEK FOR A DIVERTICULITIS FLARE UP, WAS PUT ON ABX, HAS BEEN VOMITING OFF AND ON FOR ABOUT A WK, 4 TIMES TODAY, LUQ PAIN FOR 3 DAYS, LOOSE STOOLS SINCE TAKING ABX Source of Information: Patient, Old Records Exam Limitations: No Limitations History of Present Illness Date Seen by Provider: Jun 05, 2023 Time Seen by Provider: 17:51 Initial Comments 35-year-old male with past medical history of recurrent diverticulitis coming in due to left lower quadrant pain and persistent vomiting. This has been going on for just over a week, started on antibiotics this past which was Bactrim and Flagyl, vomiting has persisted, and now is febrile greater than 100.4 degrees today. Has not had any Tylenol or ibuprofen yet. Has vomited to many times to count today. He did keep his medicines down the past couple days, but not today. Otherwise denying any chest pain, shortness of breath, dysuria, rash, or any other concerns. Last bowel movement was yesterday and none have been black or bloody. Allergies and Home Medications Allergies Coded Allergies: No Known Drug Allergies (Unverified , 04/17/13) Patient Home Medication List Home Medication List Reviewed: Yes Amoxicillin/Potassium Clav (Amox Tr-K Clv 875-125 mg Tab) 875 Mg-125 Mg Tablet, 1 EACH PO BID Prescribed by: BROWN OREILLY on 12/07/22 1233 Famotidine (Heartburn Relief) 20 Mg Tablet, 20 MG PO DAILY PRN for HEARTBURN, (Reported) Entered as Reported by: DEBORAH BOSS on 12/06/22 1037 Simethicone (Gas-X) 125 Mg Capsule, 125 MG PO Q8H PRN for GAS, (Reported) Entered as Reported by: DEBORAH BOSS on 12/06/22 1037 Review of Systems Review of Systems Constitutional: No fever EENTM: No Symptoms Reported Respiratory: No Symptoms Reported Cardiovascular: No Symptoms Reported Gastrointestinal: See HPI Genitourinary: No Symptoms Reported Musculoskeletal: no symptoms reported Skin: no symptoms reported Psychiatric/Neurological: No Symptoms Reported Endocrine: No Symptoms Reported Hematologic/Lymphatic: No Symptoms Reported Past Pkenbul-Orphos-Wmbupy Hx Patient Social History Tobacco Use?: No Substance use?: Yes Substance type: Marijuana Alcohol Use?: No Immunizations Up To Date Tetanus Booster (TDap): More than 5yrs First/Initial COVID19 Vaccinat: X3 Second COVID19 Vaccination Stan: X3 Third COVID19 Vaccination Date: X3 Seasonal Allergies Seasonal Allergies: Yes Past Medical History Surgery/Hospitalization HX: DIVERTICULOSIS Surgeries: Yes (DENTAL) Respiratory: No Cardiac: No Neurological: No Genitourinary: No Gastrointestinal: Yes Diverticulosis Musculoskeletal: No Endocrine: No HEENT: No Cancer: No Psychosocial: Yes Anxiety, Depression Integumentary: No Blood Disorders: No Family Medical History Cancer SOCIAL HISTORY: -SMOKED 1 PPD, QUIT 2021 -DRUGS--THC -ETOH--OCCASIONAL USE--ABOUT ONCE A MONTH Physical Exam Vital Signs Vital Signs - First Documented 06/05/23 17:51 Temp 37.4 Pulse 107 Resp 22 B/P (MAP) 152/106 (121) Pulse Ox 99 O2 Delivery Room Air Capillary Refill : Less Than 3 Seconds Height/Weight/BMI Height: 6'" Weight: 185lbs. oz. 83.880631nx; 23.00 BMI Method:Stated General Appearance: WD/WN, mild distress HEENT: PERRL/EOMI, normal ENT inspection, pharynx normal Neck: non-tender, full range of motion, supple, normal inspection Respiratory: chest non-tender, lungs clear, normal breath sounds, no respiratory distress, no accessory muscle use Cardiovascular: regular rate, rhythm, no edema Gastrointestinal: normal bowel sounds, soft; No distended, No guarding, No rebound; tenderness Neurologic/Psychiatric: no motor/sensory deficits, alert, normal mood/affect Skin: normal color, warm/dry Focused Exam Lactate Level 06/05/23 18:03: Lactic Acid Level 3.38*H Lactic Acid Level Laboratory Tests Test 06/05/23 18:03 Lactic Acid Level 3.38 MMOL/L (0.50-2.00) *H Progress/Results/Core Measures Results/Orders Lab Results Laboratory Tests Test 06/05/23 18:03 Range/Units White Blood Count 11.0 4.3-11.0 10^3/uL Red Blood Count 5.69 H 4.30-5.52 10^6/uL Hemoglobin 17.9 H 13.3-17.7 g/dL Hematocrit 50 40-54 % Mean Corpuscular Volume 89 80-99 fL Mean Corpuscular Hemoglobin 32 25-34 pg Mean Corpuscular Hemoglobin Concent 36 32-36 g/dL Red Cell Distribution Width 11.6 10.0-14.5 % Platelet Count 327 130-400 10^3/uL Mean Platelet Volume 10.2 9.0-12.2 fL Immature Granulocyte % (Auto) 0 % Neutrophils (%) (Auto) 69 42-75 % Lymphocytes (%) (Auto) 19 12-44 % Monocytes (%) (Auto) 11 0-12 % Eosinophils (%) (Auto) 1 0-10 % Basophils (%) (Auto) 1 0-10 % Neutrophils # (Auto) 7.5 1.8-7.8 10^3/uL Lymphocytes # (Auto) 2.1 1.0-4.0 10^3/uL Monocytes # (Auto) 1.2 H 0.0-1.0 10^3/uL Eosinophils # (Auto) 0.1 0.0-0.3 10^3/uL Basophils # (Auto) 0.1 0.0-0.1 10^3/uL Immature Granulocyte # (Auto) 0.0 0.0-0.1 10^3/uL Prothrombin Time 14.2 12.2-14.7 SEC INR Comment 1.1 0.8-1.4 Activated Partial Thromboplast Time 29 24-35 SEC Sodium Level 136 135-145 MMOL/L Potassium Level 4.1 3.6-5.0 MMOL/L Chloride Level 100 98-107 MMOL/L Carbon Dioxide Level 18 L 21-32 MMOL/L Anion Gap 18 H 5-14 MMOL/L Blood Urea Nitrogen 8 7-18 MG/DL Creatinine 1.16 0.60-1.30 MG/DL Estimat Glomerular Filtration Rate 83 BUN/Creatinine Ratio 7 Glucose Level 109 H 70-105 MG/DL Lactic Acid Level 3.38 *H 0.50-2.00 MMOL/L Calcium Level 10.4 H 8.5-10.1 MG/DL Corrected Calcium 8.5-10.1 MG/DL Magnesium Level 2.2 1.6-2.4 MG/DL Total Bilirubin 0.8 0.1-1.0 MG/DL Aspartate Amino Transf (AST/SGOT) 33 5-34 U/L Alanine Aminotransferase (ALT/SGPT) 29 0-55 U/L Alkaline Phosphatase 57 40-136 U/L C-Reactive Protein High Sensitivity 0.05 0.00-0.50 MG/DL Total Protein 9.2 H 6.4-8.2 GM/DL Albumin 5.3 H 3.2-4.5 GM/DL Lipase 40 8-78 U/L Smear Scan YES My Orders Orders - WILLIAMS CHACON MD Ct Abdomen/Pelvis W (06/05/23 18:04) Ed Iv/Invasive Line Start (06/05/23 18:04) Cbc With Automated Diff (06/05/23 18:04) Comprehensive Metabolic Panel (06/05/23 18:04) Hs C Reactive Protein (06/05/23 18:04) Lactic Acid Analyzer (06/05/23 18:04) Lipase (06/05/23 18:04) Magnesium (06/05/23 18:04) Protime With Inr (06/05/23 18:04) Partial Thromboplastin Time (06/05/23 18:04) Morphine Injection (Morphine Injection (06/05/23 18:04) Ondansetron Injection (Zofran Injectio (06/05/23 18:15) Ns Iv 1000 Ml (Sodium Chloride 0.9%) (06/05/23 18:04) Piperacillin Sodium/Tazobactam (Zosyn Vi (06/05/23 18:15) Iohexol Injection (Omnipaque 350 Mg/Ml 1 (06/05/23 18:15) Received Contrast (Hold Metformin- Contr (06/05/23 18:15) Ns (Ivpb) 100 Ml (Sodium Chloride 0.9% 1 (06/05/23 18:15) Pantoprazole Injection (Protonix Injecti (06/05/23 18:15) Promethazine Injection (Phenergan Injec (06/05/23 19:00) Ketorolac Injection (Toradol Injection) (06/05/23 19:00) Medications Given in ED Current Medications Medications Dose Ordered Sig/Kaleigh Route Start Time Stop Time Status Last Admin Dose Admin Iohexol 100 ml ONCE ONCE IV 06/05/23 18:15 06/05/23 18:41 DC 06/05/23 18:36 80 ML Ondansetron HCl 4 mg ONCE ONCE IVP 06/05/23 18:15 06/05/23 18:16 DC 06/05/23 18:15 4 MG Pantoprazole 40 mg ONCE ONCE IV 06/05/23 18:15 06/05/23 18:16 DC 06/05/23 18:15 40 MG Sodium Chloride 100 ml ONCE ONCE IV 06/05/23 18:15 06/05/23 18:41 DC 06/05/23 18:35 80 ML Vital Signs/I&O 06/05/23 06/05/23 17:51 18:25 Temp 37.4 37.4 Pulse 107 Resp 22 B/P (MAP) 152/106 (121) Pulse Ox 99 O2 Delivery Room Air Blood Pressure Mean: 121 Progress Progress Note : Progress Note Above history coming in due to lower abdominal pain and nausea and vomiting. ABCs were intact and vitals were stable on presentation. Physical exam with some tenderness, but no signs of peritonitis which is reassuring. An IV was placed and basic labs were obtained including lactic acid. White blood cell count normal, high-sensitivity CRP is normal, creatinine normal, lactic acid slightly elevated. Given a bolus of IV fluids, Zofran, morphine, and then empiric Zosyn given that he prior history of diverticulitis with him being on antibiotics recently with potential failure. CT abdomen pelvis ordered interpreted by me showing no obvious stranding or free air in the abdomen. It was read as findings per the radiologist. I reassessed the patient, feeling much better. Clinically has been well-appearing and nontoxic since he arrived. I will have him finish his antibiotics as an outpatient, will send a prescription for nausea medications. I believe he is stable for discharge with outpatient follow-up. He was sent home with strict return precautions Diagnostic Imaging Diagonstic Imaging: CT (abd/pelvis) Comments NAME: [facility]Y [facility] REC#: [id number] PT STATUS: REG ER : 1985 PHYSICIAN: WILLIAMS CHACON MD ADMIT DATE: 06/05/23/ER Draft Date of Exam:06/05/23 CT ABDOMEN/PELVIS W PROCEDURE: CT abdomen and pelvis with contrast. TECHNIQUE: Multiple contiguous axial images were obtained through the abdomen and pelvis after administration of intravenous contrast. Auto Exposure Controls were utilized during the CT exam to meet ALARA standards for radiation dose reduction. All CT scans use one or more of the following dose optimizing techniques: Automated exposure control, MA and/or KvP adjustment based on patient size and exam type or iterative reconstruction. INDICATION: Left upper quadrant pain for three days as well as loose stools and vomiting. COMPARISON: Correlation is made with prior CT from 03/06/2023. FINDINGS: The lung bases are clear. Liver demonstrates some generalized low attenuation consistent with hepatic steatosis. Gallbladder is unremarkable. There is no biliary ductal dilatation. The pancreas and spleen are unremarkable. No adrenal mass is identified. No renal calculi or hydronephrosis is detected. The aorta is nonaneurysmal. The small and large bowel loops are normal in caliber. No obstruction is identified. There is diverticulosis of the descending and sigmoid colon, but no definite findings to suggest acute diverticulitis. There is no free fluid or fluid collection identified. Bladder and prostate are unremarkable. IMPRESSION: 1. Hepatic steatosis. 2. Uncomplicated diverticulosis. No acute feature in the abdomen or pelvis is identified. Dictated on workstation # [id number] Dict: 06/05/23 1846 Trans: 06/05/23 1852 [id number] Interpreted by: KATIE GALLARDO MD Electronically signed by: Departure Impression Primary Impression: LLQ pain Additional Impressions: Vomiting in adult Diverticulosis Disposition: 01 HOME, SELF-CARE Condition: Stable Departure-Patient Inst. Decision time for Depature: 19:00 Referrals: SABRINA WHIET APRN (PCP/Family) Primary Care Physician Patient Instructions: Nausea and Vomiting, Adult ED Add. Discharge Instructions: There is fortunately no active diverticulitis at this time, it is likely that the antibiotics you have been on the have calmed that down. Be sure to finish those antibiotics. A different nausea medicine was sent to your pharmacy called promethazine. You can try the Zofran first, and take the promethazine if that is not working. Please follow-up with your regular doctor if you are not seeing improvement in the next couple of days Scripts Promethazine HCl (Promethazine Tablet) 25 Mg Tablet 25 MG PO Q8H PRN for NAUSEA/VOMITING-2ND LINE for 5 Days, #15 TAB 0 Refills Prov: WILLIAMS CHACON MD 06/05/23 Work/School Note: Work Release Form Date Seen in the Emergency Department: Jun 05, 2023 Return to Work: Jun 07, 2023 Restrictions: Return-No Vomiting(24hrs) WILLIAMS CHACON MD Jun 05, 2023 18:09
[2023-06-05 18:13] LABS: BASOPHILS # (AUTO) 0.1 10^3/uL (0.0-0.1); BASOPHILS % (AUTO) 1 % (0-10); EOSINOPHILS # (AUTO) 0.1 10^3/uL (0.0-0.3); EOSINOPHILS % (AUTO) 1 % (0-10); HEMATOCRIT 50 % (40-54); HEMOGLOBIN 17.9 g/dL (13.3-17.7); LYMPHOCYTES # (AUTO) 2.1 10^3/uL (1.0-4.0); LYMPHOCYTES % (AUTO) 19 % (12-44); MEAN CORPUSCULAR HEMOGLOBIN 32 pg (25-34); MEAN CORPUSCULAR HGB CONC 36 g/dL (32-36); MEAN CORPUSCULAR VOLUME 89 fL (80-99); MEAN PLATELET VOLUME 10.2 fL (9.0-12.2); MONOCYTES # (AUTO) 1.2 10^3/uL (0.0-1.0); MONOCYTES % (AUTO) 11 % (0-12); NEUTROPHILS # (AUTO) 7.5 10^3/uL (1.8-7.8); NEUTROPHILS % (AUTO) 69 % (42-75); PLATELET COUNT 327 10^3/uL (130-400)
[2023-06-05] MEDS ORDERED: PIPERACILLIN SODIUM/TAZOBACTAM 4.5 GM in NS (IVPB) 100 ML 100 ML IV ONE (18:15)
[2023-06-05] MEDS ORDERED: IOHEXOL 350 MG/ML 100 ML (OMNIPAQUE 350) VIAL IV ONE (18:15)
[2023-06-05] MEDS ORDERED: PANTOPRAZOLE 40 MG (PROTONIX) VIAL IV ONE (18:15)
[2023-06-05] MEDS ORDERED: ONDANSETRON 4 MG/2 ML (SDV) Z0FRAN IVP ONE (18:15)
[2023-06-05] MEDS ORDERED: NS 100 ML (IVPB) BAG IV ONE (18:15)
[2023-06-05] MEDS ORDERED: HOLD METFORMIN - RECEIVED CONTRAST 20 ML VIAL IV SCH (18:15)
[2023-06-05 18:21] LABS: SMEAR SCAN COMMENT YES
[2023-06-05 18:22] LABS: INR 1.1 (0.8-1.4); PROTHROMBIN TIME PATIENT 14.2 SEC (12.2-14.7)
[2023-06-05 18:26] LABS: ALBUMIN 5.3 GM/DL (3.2-4.5); CHLORIDE 100 MMOL/L (98-107); POTASSIUM 4.1 MMOL/L (3.6-5.0); SODIUM 136 MMOL/L (135-145)
[2023-06-05 18:27] LABS: CALCIUM 10.4 MG/DL (8.5-10.1)
[2023-06-05 18:28] LABS: GLUCOSE 109 MG/DL (70-105); TOTAL PROTEIN 9.2 GM/DL (6.4-8.2)
[2023-06-05 18:29] LABS: CARBON DIOXIDE 18 MMOL/L (21-32)
[2023-06-05 18:30] LABS: BILIRUBIN,TOTAL 0.8 MG/DL (0.1-1.0)
[2023-06-05 18:32] LABS: ALKALINE PHOSPHATASE 57 U/L (40-136); CREATININE SERUM 1.16 MG/DL (0.60-1.30); GFR ESTIMATED 83
[2023-06-05 18:33] LABS: BUN/CREATININE RATIO 7
[2023-06-05 18:35] LABS: ALANINE AMINOTRANSFERASE 29 U/L (0-55); MAGNESIUM 2.2 MG/DL (1.6-2.4)
[2023-06-05 18:36] LABS: LIPASE 40 U/L (8-78)
--- NOTE | 2023-06-05 18:52 | Diagnostic Imaging Report ---
PROCEDURE: CT abdomen and pelvis with contrast. TECHNIQUE: Multiple contiguous axial images were obtained through the abdomen and pelvis after administration of intravenous contrast. Auto Exposure Controls were utilized during the CT exam to meet ALARA standards for radiation dose reduction. All CT scans use one or more of the following dose optimizing techniques: Automated exposure control, MA and/or KvP adjustment based on patient size and exam type or iterative reconstruction. INDICATION: Left upper quadrant pain for three days as well as loose stools and vomiting. COMPARISON: Correlation is made with prior CT from 03/06/2023. FINDINGS: The lung bases are clear. Liver demonstrates some generalized low attenuation consistent with hepatic steatosis. Gallbladder is unremarkable. There is no biliary ductal dilatation. The pancreas and spleen are unremarkable. No adrenal mass is identified. No renal calculi or hydronephrosis is detected. The aorta is nonaneurysmal. The small and large bowel loops are normal in caliber. No obstruction is identified. There is diverticulosis of the descending and sigmoid colon, but no definite findings to suggest acute diverticulitis. There is no free fluid or fluid collection identified. Bladder and prostate are unremarkable. IMPRESSION: 1. Hepatic steatosis. 2. Uncomplicated diverticulosis. No acute feature in the abdomen or pelvis is identified. Dictated by: Dictated on workstation # [id number]
[2023-06-05] MEDS ORDERED: PROM25TA14 PO (18:58)
[2023-06-05] MEDS ORDERED: PROMETHAZINE INJ 25 MG/ML (PHENERGAN) AMP IVP ONE (19:00)
[2023-06-05] MEDS ORDERED: KETOROLAC 30 MG/ML VIAL IVP ONE (19:00)
[2023-06-05 19:33] VITALS: BP 147/90
== END 2023-06-05 19:34 | disposition home or self-care (01) ==
LOC: ER 17:45 → EDUNIT# 17:45 → ER 19:34
DX: K57.90 Diverticulosis of intestine, part unspecified, without perforation or abscess without bleeding (principal); Z87.891 Personal history of nicotine dependence
CPT/HCPCS: 36415; 74177; 80053; 83605; 83690; 83735; 85025; 85610; 85730; 86141; 96361; 96365; 96375